=== PATIENT | female | born 1955 | race Hispanic/Latino ===

== ENCOUNTER 2016-08-16 13:37 | Inpatient (IN) | payer MEDICARE ==
[2016-08-16] MEDS ORDERED: NACL 0.9% 1000 ML 1,000 ML ONE ×2 (13:48→17:12)
[2016-08-16 14:32] LABS: Eosinophils % (Auto) 0.8 % (0.0-4.3); Hematocrit 37.8 % (30.3-42.9); Hemoglobin 12.3 gm/dl (10.1-14.3); Mean Corpuscular HGB Conc 33 % (30-34); Mean Corpuscular Hemoglobin 27 pg (28-32); Mean Corpuscular Volume 84 fl (79-97); Platelet Count 336 K/mm3 (140-440); Red Blood Count 4.52 M/mm3 (3.65-5.03); Red Cell Distribution Width 15.3 % (13.2-15.2); White Blood Count 8.5 K/mm3 (4.5-11.0)
[2016-08-16 14:40] LABS: Anion Gap 15 mmol/L; BUN/Creatinine Ratio 8.75; Blood Urea Nitrogen 7 mg/dL (7-17); Carbon Dioxide 28 mmol/L (22-30); Chloride 98.3 mmol/L (98-107); Glucose 474 mg/dL (65-100); Potassium 4.7 mmol/L (3.6-5.0); Sodium 137 mmol/L (137-145)
[2016-08-16] MEDS ORDERED: ATROVENT IH ONE (14:55)
[2016-08-16] MEDS ORDERED: PROVENTIL IH ONE (14:56)
[2016-08-16] MEDS ORDERED: ZITHROMAX PO ONE (14:56)
--- NOTE | 2016-08-16 14:56 | XRay Report ---
PORTABLE CHEST INDICATION: Productive cough. COMPARISON: None similar at this institution. FINDINGS: Portable, frontal chest radiograph demonstrates mild horizontal left lung base scarring or atelectasis. Otherwise clear lungs. Normal cardiomediastinal silhouette. EKG leads. Mild bony degenerative changes. CONCLUSION: No significant acute chest process, as described. Direct comparison with prior chest imaging would also be helpful, if available. Thank you for the opportunity to participate in this patient's care.
[2016-08-16 14:57] LABS: Bilirubin,Urine NEG (Negative); Blood,Urine NEG (Negative); Ketones,Urine NEG (Negative); Leukocyte Esterase,Urine NEG (Negative); Nitrite,Urine NEG (Negative); Protein,Urine <15 mg/dL mg/dL (Negative); RBC,Urine < 1.0 /HPF (0.0-6.0); Urobilinogen,Urine < 2.0 mg/dL (<2.0)
[2016-08-16] MEDS ORDERED: TESSALON PERLES PO ONE (14:57)
[2016-08-16 15:33] LABS: ISTAT Base Excess -1; ISTAT HCO3 24.4; ISTAT PCO2 43.4 (35-45); ISTAT PH 7.358 (7.35-7.45); ISTAT PO2 72 (80-105); ISTAT SO2 93; ISTAT TCO2 26
[2016-08-16] MEDS ORDERED: NACL 0.9% 1000 ML 1,000 ML IV ONE (17:38)
--- NOTE | 2016-08-16 18:41 | Admit Criteria Form ---
Admission Criteria Documentation: PULMONARY DISEASE GRG Clinical Indications for Admission to Inpatient Care ( Place 'X' for any and all applicable criteria): Hospital admission is needed for appropriate care of the patient because of ANY ONE of the following(1): [ ]I. Impending or actual respiratory arrest ( Use Respiratory Failure Criteria for severe respiratory disease and long-term mechanical ventilation patients) (4) [ ]II. Severe airflow or ventilation abnormalities (not responsive to emergency and observation care treatment as appropriate) as indicated by ANY ONE of the following(5)(6)(7)(8) : [ ]a) PCO2 > 42 mm Hg (5.6 kPa) and pH < 7.35 (new) [ ]b) Documented PCO2 increase > 5 mm Hg (0.7 kPa) from disease baseline [ ]c) Airflow measurements[A] < 60% of previous best or predicted ( e.g., PEF <300 L/minute) despite intensive emergent treatment[B] [ ]d) Required respiratory treatments that are performable only in acute inpatient setting [ X]III. Severe respiratory findings (not responsive to emergency and observation care treatment as appropriate) including ANY ONE of the following(5)(8)(9): [ X]a) Respiratory distress as indicated by ALL of the following(5)(10) : [X]i) Patient with ANY ONE of the following: [X ]1) Dyspnea (difficulty breathing) [ ]2) Abnormal breathing pattern (eg, chest retractions) [ ]3) Tachypnea [ ]4) Other evidence of difficulty breathing [X ]ii) Evidence of respiratory compromise indicated by ANY ONE of the following: [ X]1) Hypoxemia [ ]2) Altered mental status [ ]3) Other evidence of respiratory compromise (eg, pulmonary edema on chest x-ray) [ ]b) Stridor [ ]c) Gross hemoptysis(11) [ ]d) Acute cyanosis [ ]IV. High-risk pulmonary infection as indicated by ANY ONE of the following( 19)(20)(21)(22): [ ]a) Temperature less than 95 degrees F(35 degrees C) or greater than 103.1 degrees F(39.5 degrees C) [ ]b) Hemodynamic instability that remains after emergency or observation level care (as appropriate) [ ]c) Immunocompromised patient (eg, AIDS, post transplant, neutropenic) [ ]d) History of severe COPD [ ]e) History of severely symptomatic congestive heart failure [ ]f) Other high-risk comorbidity (eg, poorly controlled diabetes, cirrhosis, chronic renal insufficiency) [ ]g) Hypoxemia (new) [ ]h) Outpatient, observation, or recovery facility therapy has failed, is not appropriate, or is not feasible [ ]V. Severe atelectasis or lung collapse(15)(16) [ ]. Tuberculosis requiring inpatient treatment as indicated by ANY ONE of the following(17)(18): [ ]a) New positive acid-fast bacilli sputum smear [ ]b) Positive acid-fast bacilli smear (under current treatment), with ANY ONE of the following: [ ]i) Unexposed household contacts [ ]ii) Infants or immunosuppressed household contacts [ ]iii) Patient unable or unwilling to avoid exposing others [ ]iv) Severe immunocompromised patient (eg, AIDS, post transplant, neutropenic) [ ]VII. Empyema or lung abscess(13)(14) [ ]VIII. Severe pulmonary arterial hypertension or pulmonary vascular disease requiring inpatient care indicated by ANY ONE of the following(24)(25): [ ]a) Initiation or change of vasodilators (IV, subcutaneous, or inhaled) or other vasoactive medications needed [ ]b) IV anticoagulation needed (eg, immediate anticoagulation necessary, alternatives not appropriate) [ ]c) Arterial or pulmonary artery catheter monitoring needed due to infusion or other treatment [ ]IX. Chronic lung disease with severe deterioration (not responsive to emergency and observation care treatment as appropriate) as indicated by ANY ONE of the following (6)(12): [ ]a) SaO2 5% below baseline in patient with chronic hypoxemia [ ]b) New requirement for supplemental oxygen to keep SaO2 at baseline or acceptable level [ ]c) Required supplemental oxygen performable only in acute inpatient setting [ ]d) Severe airflow or ventilation abnormalities [ ]e) Rapid rate of exacerbation onset [ ]f) Previously mobile patient unable to walk between rooms [ ]g) Inability to eat or sleep due to dyspnea [ ]h) Altered mental status [ ]X. Cystic fibrosis with severe deterioration as indicated by ANY ONE of the following(26)(27): [ ]a) Severe exacerbation that does not respond to intensified home therapy [ ]b) Pneumonia [ ]c) Hemoptysis [ ]d) Atelectasis [ ]e) Pneumothorax [ ]f) Respiratory failure [ ]g) Severe exacerbation with patient unable to perform prescribed treatments at home [ ]XI. Severe right heart failure as indicated by ANY ONE of the following(24) (25): [ ]a) Increasing organ failure (eg, liver congestion with significant and worsening or new elevation of transaminases) [ ]b) Anasarca [ ]c) Angina that requires inpatient care (eg, not treatable in emergency or observation level of care) [ ]d) Respiratory distress [ ]e) Syncope [ ]f) SBP < 90 mm Hg (new) [ ]XII. Injury requiring inpatient care (medical) as indicated by ANY ONE of the following(28): [ ]a) Significant inhalation injury (eg, smoke inhalation, other toxic inhalation) (29)(30)(31) [ ]b) Airway obstruction that remains or is unstable after emergency or observation level care(32) [ ]c) Severe pain requiring acute inpatient management [ ]d) Lung contusion [ ]e) Bronchial tree injury [ ]f) Air or fat emboli(33) [ ]g) Other injury not treatable in emergency or observation level care (eg, hemothorax) (34) [ ]XIII. Pulmonary hemorrhage or significant hemoptysis(11)(35)(36) [ ]XIV. Inpatient palliative care needed[C](37)(38)(39)(40) [ ]XV. Complications of lung transplant (eg, rejection, failure, respiratory infection) (23) [ ]XVI. Pulmonary Disease and ANY ONE of the following: [ ]a) General Admission Criteria [ ]b) Pediatric General Admission Criteria The original [facility] content created by [facility] has been revised. The portions of the content which have been revised are identified through the use of italic text or in bold, and [facility] has neither reviewed nor approved the modified material. All other unmodified content is copyright [facility]. Please see references footnoted in the original [facility] edition 2016 Admission Criteria Met: Yes
[2016-08-16] MEDS ORDERED: D50W (25GM) IV PRN (19:02)
--- NOTE | 2016-08-16 19:28 | Emergency Department Report ---
ED Shortness of Breath HPI - General Chief Complaint: Upper Respiratory Infection Stated Complaint: COUGH Time Seen by Provider: 08/16/16 14:21 Source: patient, EMS Mode of arrival: Stretcher Limitations: Other - History of Present Illness MD Complaint: shortness of breath (wheezing), cough -: Gradual, days(s) Severity: moderate Pain Scale: 5 Quality: other (tightness) Consistency: constant Improves With: rest Worsens With: exertion Known History Of: asthma (COPD) Context: recent URI Associated Symptoms: chest pain, cough, sputum production, other (wheezing) - Related Data Home Medications Medication Instructions Recorded Confirmed Last Taken Baclofen [Lioresal] 10 mg PO TID 08/16/16 08/16/16 Unknown Donepezil [Aricept] 10 mg PO QDAY 08/16/16 08/16/16 Unknown Duloxetine HCl [Cymbalta] 60 mg PO QDAY 08/16/16 08/16/16 Unknown ISOSORBIDE MONOnitrate [Imdur ER] 60 mg PO QAM 08/16/16 08/16/16 Unknown Losartan [Cozaar] 100 mg PO QDAY 08/16/16 08/16/16 Unknown Lurasidone HCl [Latuda] 20 mg PO QHS 08/16/16 08/16/16 Unknown Meloxicam [Mobic] 7.5 mg PO QDAY 08/16/16 08/16/16 Unknown Memantine HCl [Namenda Xr] 28 mg PO QDAY 08/16/16 08/16/16 Unknown Mirtazapine [Remeron] 30 mg PO QDAY 08/16/16 08/16/16 Unknown Omeprazole Magnesium [PriLOSEC Otc] 20 mg PO QDAY 08/16/16 08/16/16 Unknown Oxybutynin Chloride [Ditropan Xl] 10 mg PO QDAY 08/16/16 08/16/16 Unknown Ranitidine HCl [Zantac 150 MG TAB] 150 mg PO BID 08/16/16 08/16/16 Unknown Previous Rx's Medication Instructions Recorded Last Taken Type ALBUTEROL Inhaler [ProAir HFA 2 puff IH QID PRN #2 inhalation 08/16/16 Unknown Rx Inhaler] Azithromycin [Zithromax TAB] 250 mg PO QDAY #6 tablet 05/02/17 Unknown Rx predniSONE [Deltasone] 50 mg PO QDAY #5 tab 08/16/16 Unknown Rx Allergies Allergy/AdvReac Type Severity Reaction Status Date / Time clopidogrel bisulfate Allergy Unknown Verified 08/16/16 13:55 [From Plavix] hydromorphone HCl Allergy Unknown Verified 08/16/16 13:55 [From Dilaudid] IV Contast Dye Allergy Unknown Uncoded 08/16/16 13:55 ED Review of Systems ROS: Stated complaint: COUGH Other details as noted in HPI Other: GENERAL: No weight change, fatigue, weakness, fever, chills, or night sweats SKIN: No changes in skin or hair, no itching, no rashes, no jaundice HEAD: No trauma, headache, or visual changes EYES: No blurriness, tearing, itching, acute visual loss, conjunctival discoloration, or scleral icterus EARS: No hearing loss, tinnitus, vertigo, or earache NOSE: No rhinorrhea, stuffiness, sneezing, itching, or epistaxis MOUTH: No bleeding gums, hoarseness, sore throat, or swelling CARDIAC: No new murmur, chest pain, palpitations, dyspnea on exertion, orthopnea , PND, or edema RESPIRATORY: shortness of breath, wheeze, cough, sputum production, COPD GI: No change in appetite, nausea, vomiting, dysphagia, change in bowel frequency, diarrhea, constipation, bleeding, hematemesis, melena, hematochezia, or abdominal pain URINARY: No frequency, urgency, polyuria, dysuria, hematuria, or incontinence MUSCULOSKELETAL: No muscle weakness, joint stiffness, decrease in range of motion, redness, swelling, tenderness NEUROLOGIC: No loss of sensation, numbness, tingling, tremors, weakness, paralysis, seizures HEMATOLOGIC: No anemia, easy bruising, bleeding, petechiae, or purpura ENDOCRINE: No hot or cold intolerance, sweating, polyuria, polydipsia or, polyphagia no thyroid problems PSYCHIATRIC: depression, Denies SI/HI ED Past Medical Hx - Past Medical History Previous Medical History?: Yes Hx Heart Attack/AMI: Yes Hx Diabetes: Yes Hx GERD: Yes Hx Psychiatric Treatment: Yes (bipolar) Hx COPD: Yes Additional medical history: multiple sclerosis - Surgical History Past Surgical History?: Yes Hx Coronary Stent: Yes (x4) - Social History Smoking Status: Current Every Day Smoker Substance Use Type: None - Medications Home Medications: Home Medications Medication Instructions Recorded Confirmed Last Taken Type ALBUTEROL Inhaler [ProAir HFA 2 puff IH QID PRN #2 inhalation 08/16/16 Unknown Rx Inhaler] Azithromycin [Zithromax TAB] 250 mg PO QDAY #6 tablet 08/16/16 Unknown Rx Baclofen [Lioresal] 10 mg PO TID 08/16/16 08/16/16 Unknown History Donepezil [Aricept] 10 mg PO QDAY 08/16/16 08/16/16 Unknown History Duloxetine HCl [Cymbalta] 60 mg PO QDAY 08/16/16 08/16/16 Unknown History ISOSORBIDE MONOnitrate [Imdur ER] 60 mg PO QAM 08/16/16 08/16/16 Unknown History Losartan [Cozaar] 100 mg PO QDAY 08/16/16 08/16/16 Unknown History Lurasidone HCl [Latuda] 20 mg PO QHS 08/16/16 08/16/16 Unknown History Meloxicam [Mobic] 7.5 mg PO QDAY 08/16/16 08/16/16 Unknown History Memantine HCl [Namenda Xr] 28 mg PO QDAY 08/16/16 08/16/16 Unknown History Mirtazapine [Remeron] 30 mg PO QDAY 08/16/16 08/16/16 Unknown History Omeprazole Magnesium [PriLOSEC Otc] 20 mg PO QDAY 08/16/16 08/16/16 Unknown History Oxybutynin Chloride [Ditropan Xl] 10 mg PO QDAY 08/16/16 08/16/16 Unknown History Ranitidine HCl [Zantac 150 MG TAB] 150 mg PO BID 08/16/16 08/16/16 Unknown History predniSONE [Deltasone] 50 mg PO QDAY #5 tab 08/16/16 Unknown Rx ED Physical Exam - General Limitations: Other - Other Other exam information: GENERAL: Patient in no acute distress HEAD: Normocephalic, atraumatic EYES: PERRLA, EOM intact, no scleral icterus, no papilledema, no conjunctival hemorrhage, visual barboza and acuity wnl, NOSE: No tenderness, discharge, sinus tenderness MOUTH: No erythema, bleeding, exudate HEART: Regular rate and rhythm, no murmur, S1-S2 are auscultated, pulses are symmetric LUNGS: wheezing, rales, tachypnea ABDOMEN: Normal bowel sounds, no tenderness, no rebound, no guarding, no masses , no CVA tenderness MUSCULOSKELETAL: Normal joint range of motion, no redness, no swelling, no tenderness NEUROLOGIC: GCS 15, Alert and Oriented x3, Cranial nerves intact, normal sensation, normal strength, normal gait, no cerebellar deficit PSYCHIATRIC: No homicidal or suicidal ideation, no hallucinations SKIN: Skin is warm and dry, no wounds, no rashes ED Course Vital Signs 08/16/16 08/16/16 08/16/16 13:36 13:41 13:48 Temperature 98.8 F Pulse Rate 83 84 Pulse Rate [ Bilateral Bases ] Respiratory 15 25 H 25 H Rate Respiratory Rate [Bilateral Bases] Blood Pressure 144/48 144/48 Blood Pressure [Right] O2 Sat by Pulse 92 92 Oximetry 08/16/16 08/16/16 08/16/16 13:51 14:00 14:05 Temperature Pulse Rate 86 84 Pulse Rate [ Bilateral Bases ] Respiratory 28 H 19 22 Rate Respiratory Rate [Bilateral Bases] Blood Pressure 133/60 138/59 Blood Pressure [Right] O2 Sat by Pulse 96 96 90 Oximetry 08/16/16 08/16/16 08/16/16 14:11 14:15 14:21 Temperature 98.6 F Pulse Rate 81 85 81 Pulse Rate [ Bilateral Bases ] Respiratory 25 H 29 H 18 Rate Respiratory Rate [Bilateral Bases] Blood Pressure 130/65 132/72 Blood Pressure 130/65 [Right] O2 Sat by Pulse 96 96 86 Oximetry 08/16/16 08/16/16 08/16/16 14:30 15:00 15:17 Temperature Pulse Rate 85 85 Pulse Rate [ 82 Bilateral Bases ] Respiratory 16 24 Rate Respiratory 20 Rate [Bilateral Bases] Blood Pressure 133/62 143/69 Blood Pressure [Right] O2 Sat by Pulse 96 94 Oximetry 08/16/16 08/16/16 08/16/16 15:30 15:31 16:00 Temperature Pulse Rate 93 H 92 H Pulse Rate [ 85 Bilateral Bases ] Respiratory 17 23 Rate Respiratory 10 L Rate [Bilateral Bases] Blood Pressure 134/70 147/60 Blood Pressure [Right] O2 Sat by Pulse 95 85 Oximetry 08/16/16 08/16/16 08/16/16 16:30 17:00 17:30 Temperature Pulse Rate 94 H 98 H 87 Pulse Rate [ Bilateral Bases ] Respiratory 23 20 16 Rate Respiratory Rate [Bilateral Bases] Blood Pressure 147/66 137/67 143/64 Blood Pressure [Right] O2 Sat by Pulse 92 94 96 Oximetry 08/16/16 08/16/16 08/16/16 18:00 18:30 19:01 Temperature Pulse Rate 93 H 106 H 91 H Pulse Rate [ Bilateral Bases ] Respiratory 25 H 19 17 Rate Respiratory Rate [Bilateral Bases] Blood Pressure 130/88 137/115 137/115 Blood Pressure [Right] O2 Sat by Pulse 98 96 95 Oximetry 08/16/16 08/16/16 08/16/16 19:31 20:01 20:31 Temperature Pulse Rate Pulse Rate [ Bilateral Bases ] Respiratory Rate Respiratory Rate [Bilateral Bases] Blood Pressure 137/115 137/115 137/115 Blood Pressure [Right] O2 Sat by Pulse 95 94 94 Oximetry 08/16/16 08/16/16 08/16/16 21:00 21:31 22:00 Temperature Pulse Rate 99 H 98 H Pulse Rate [ Bilateral Bases ] Respiratory 13 12 Rate Respiratory Rate [Bilateral Bases] Blood Pressure 116/62 116/62 143/73 Blood Pressure [Right] O2 Sat by Pulse 95 95 94 Oximetry 08/16/16 08/16/16 08/16/16 22:31 23:01 23:31 Temperature Pulse Rate Pulse Rate [ Bilateral Bases ] Respiratory Rate Respiratory Rate [Bilateral Bases] Blood Pressure 116/62 150/68 150/68 Blood Pressure [Right] O2 Sat by Pulse 91 91 95 Oximetry 08/17/16 08/17/16 00:01 00:31 Temperature Pulse Rate Pulse Rate [ Bilateral Bases ] Respiratory Rate Respiratory Rate [Bilateral Bases] Blood Pressure 150/68 150/68 Blood Pressure [Right] O2 Sat by Pulse 96 96 Oximetry ED Medical Decision Making - Lab Data Result diagrams: 08/18/16 04:23 08/18/16 04:23 - EKG Data When compared to previous EKG there are: no significant change - Radiology Data Radiology results: report reviewed - Medical Decision Making Patient comfortable. Updated with results. Plan admission for further evaluation. Patient agrees with plan. Hospitalists accepts admission. Critical care attestation.: If time is entered above; I have spent that time in minutes in the direct care of this critically ill patient, excluding procedure time. ED Disposition Clinical Impression: COPD exacerbation Disposition: OP ADMITTED IP TO THIS HOSP Is pt being admited?: Yes Condition: Stable
[2016-08-16] MEDS ORDERED: NOVOLOG SUB-Q SCH (22:00)
--- NOTE | 2016-08-17 00:29 | Event Note ---
Date: 08/16/16 See H/p in reports Copd exacerbation
[2016-08-17] MEDS ORDERED: DULCOLAX PR PRN (00:38)
[2016-08-17] MEDS ORDERED: ZOFRAN IV PRN (00:38)
[2016-08-17] MEDS ORDERED: MILK OF MAGNESIA PO PRN (00:38)
[2016-08-17] MEDS ORDERED: TYLENOL PO PRN (00:38)
[2016-08-17] MEDS ORDERED: PERCOCET 5/325 PO PRN (00:39)
[2016-08-17] MEDS ORDERED: DILAUDID IV PRN (00:39)
[2016-08-17] MEDS ORDERED: AMBIEN PO PRN (00:39)
[2016-08-17] MEDS ORDERED: DUONEB 0.5 MG-3 MG/3 ML SOLN IH PRN (00:41)
[2016-08-17] MEDS ORDERED: NON-FORMULARY (Ranitidine Hcl [Zantac 150 Mg Tab] 150 MG) PO SCH (00:45)
[2016-08-17] MEDS ORDERED: NACL 0.45% 1000 ML 1,000 ML IV SCH (01:00)
[2016-08-17] MEDS ORDERED: PROVENTIL IH PRN (01:02)
[2016-08-17] MEDS: DUONEB 0.5 MG-3 MG/3 ML SOLN IH SCH ×4 (02:08→19:48)
--- NOTE | 2016-08-17 06:31 | History and Physical Report ---
CHIEF COMPLAINT: Increasing shortness of breath for last 3 days. HISTORY OF PRESENT ILLNESS: A 60-year-old female with hypertension, COPD, coronary artery disease, depression, mild dementia, urinary incontinence, comes in for increasing shortness of breath of 3 days duration. Increasing wheezing. Cough productive of mucoid sputum to yellow sputum. No fever, no chills. No exacerbating or relieving factors. Slightly exertional dyspnea present. No chest pain. No diaphoresis. No palpitations. PAST MEDICAL HISTORY: As mentioned, COPD, acute MA in the past, insulin-dependent diabetes, gastroesophageal reflux disease, bipolar disorder, multiple sclerosis. PAST SURGICAL HISTORY: Coronary stents x 4. Two at a time. SOCIAL HISTORY: Smokes about a pack a day. FAMILY HISTORY: Significant for hypertension. CURRENT MEDICATIONS: On the chart. REVIEW OF SYSTEMS: CONSTITUTIONAL: No weight loss, no weight gain, no fever, no chills. HEENT: No sore throat. No postnasal drip. NECK: No neck stiffness. RESPIRATORY SYSTEM: Wheezing and cough productive of mucoid sputum present. CARDIOVASCULAR: No chest pain, no palpitation. No diaphoresis. GASTROINTESTINAL SYSTEM: No nausea, no vomiting, no diarrhea. GENITOURINARY SYSTEM: No dysuria, no flank pain. MUSCULOSKELETAL SYSTEM: No joint pains. No muscle pains. CENTRAL NERVOUS SYSTEM: No syncope, no seizures. SKIN: No rashes. PHYSICAL EXAMINATION GENERAL: Elderly female, cooperative during examination. VITAL SIGNS: Temperature is 98.6, pulse is 81, respiratory rate is 22, blood pressure is 130/65. HEENT: Unremarkable. Pupils are equal and reactive. NECK: Supple, no lymphadenopathy, no thyromegaly. LUNGS: Clear to auscultation and percussion. Good air entry. Bilateral rhonchi present. CARDIOVASCULAR: S1, S2 heard. No gallop, no murmur, no rub. Apical impulse in left fifth intercostal space and midclavicular line. ABDOMEN: Soft and benign. No hepatosplenomegaly. No guarding, no rigidity. Hernial orifices are normal. EXTREMITIES: Good pedal pulses. No pedal edema. CENTRAL NERVOUS SYSTEM: Alert and oriented x 4. Nonfocal exam. SKIN: Normal. LABORATORY DATA: White count is 8500, H and H is 12.3 and 37.8, platelet count is 336,000. ABGs: pCO2 of 43.4, pO2 of 72, bicarbonate of 24, pH of 7.01. Glucose was 448. BUN and creatinine 7 and 0.8. Urine is more than 500 glucose. Chest x-ray, no acute infiltrates. EKG, nonspecific ST-T wave changes. Heart rate of 80 per minute. ASSESSMENT AND PLAN: 1. Chronic obstructive pulmonary disease exacerbation. The patient was started on DuoNeb, IV Levaquin and steroids. Continue all three. Also, consult Dr. Christiansen for the chronic obstructive pulmonary disease exacerbation. 2. Hypertension. Continue losartan 100 mg daily. 3. Bipolar disorder. Continue Latuda 20 mg p.o. at bedtime and Cymbalta 60 mg p.o. daily. 4. Dementia, mild. Continue donepezil 10 mg p.o. daily and Namenda XR 28 mg p.o. daily, 5. Restless legs syndrome. Continue mirtazapine 30 mg p.o. daily. 6. Urinary incontinence. Continue Ditropan-XL 10 mg daily. 7. Gastroesophageal reflux disease. Continue ranitidine 150 mg twice a day. 8. Deep venous thrombosis prophylaxis. Lovenox 40 mg subcutaneous daily. 9. Insulin-dependent diabetes. Accu-Cheks before meals and at bedtime, moderate to high dose sliding scale coverage. JOB# [id number] VSM/NTS
[2016-08-17] MEDS: NOVOLOG SUB-Q SCH ×3 (08:39→17:09)
[2016-08-17] MEDS: LIORESAL PO SCH ×3 (08:44→20:49)
[2016-08-17] MEDS: CYMBALTA PO SCH (09:43)
[2016-08-17] MEDS: DITROPAN XL PO SCH (09:43)
[2016-08-17] MEDS: MOBIC PO SCH (09:44)
[2016-08-17] MEDS: PROTONIX PO SCH (09:44)
[2016-08-17] MEDS: NAMENDA XR PO SCH (09:44)
[2016-08-17] MEDS: IMDUR PO SCH (09:45)
[2016-08-17] MEDS: ARICEPT PO SCH (09:45)
[2016-08-17] MEDS: COZAAR PO SCH (09:45)
[2016-08-17] MEDS: LOVENOX SUB-Q SCH (09:46)
[2016-08-17] MEDS: LEVAQUIN 750MG/150ML 750 MG/150 ML BAG IV SCH (09:46)
[2016-08-17] MEDS ORDERED: PEPCID PO SCH (10:00)
[2016-08-17] MEDS ORDERED: NON-FORMULARY (Duloxetine Hcl [Cymbalta] 60 MG) PO SCH (10:00)
[2016-08-17] MEDS ORDERED: NON-FORMULARY (Losartan [Cozaar] 100 MG) PO SCH (10:00)
[2016-08-17] MEDS ORDERED: NON-FORMULARY (Omeprazole Magnesium [Prilosec Otc] 20 MG) PO SCH (10:00)
[2016-08-17] MEDS ORDERED: NON-FORMULARY (Oxybutynin Chloride [Ditropan Xl] 10 MG) PO SCH (10:00)
[2016-08-17] MEDS ORDERED: NON-FORMULARY (Memantine Hcl [Namenda Xr] 28 MG) PO SCH (10:00)
[2016-08-17] MEDS: REMERON PO SCH (12:46)
[2016-08-17] MEDS: ROBITUSSIN DM PO PRN ×3 (12:46→22:05)
--- NOTE | 2016-08-17 13:30 | Progress Note ---
Assessment and Plan Assessment and plan: COPD exacerbation Hypertension Bipolar disorder Dementia restless leg syndrome GERD Diabetes mellitus - Solu-Medrol, IV antibiotics, breathing treatment - Continue home medications - Sliding insulin insulin, accu checks, but that DVT prophylaxis Lovenox Disposition Continue inpatient care History Interval history: Patient was seen and evaluated this morning, patient has still short of breath and wheezing. Hospitalist Physical - Physical exam Narrative exam: Not in cardiopulmonary distress. The patient appeared well nourished and normally developed. Vital signs as documented. Head exam is unremarkable. No scleral icterus . Neck is without jugular venous distension, thyromegaly, or carotid bruits. Wheezing all over the chest. Cardiac exam reveals regular rate and Rhythm. First and second heart sounds normal. No murmurs, rubs or gallops. Abdominal exam reveals normal bowel sounds, no masses, no organomegaly and no aortic enlargement. Extremities are nonedematous and both femoral and pedal pulses are normal. ASTROBIOLOGIST: Alert and oriented 3. No focal weakness. - Constitutional Vitals: Temp Pulse Resp BP Pulse Ox 97.6 F 85 17 155/72 92 08/17/16 08:00 08/17/16 08:11 08/17/16 08:11 08/17/16 09:45 08/17/16 08:13 Results - Labs CBC & Chem 7: 08/16/16 14:07 08/16/16 14:07 Labs: Laboratory Last Values WBC 8.5 K/mm3 (4.5-11.0) 08/16/16 14:07 RBC 4.52 M/mm3 (3.65-5.03) 08/16/16 14:07 Hgb 12.3 gm/dl (10.1-14.3) 08/16/16 14:07 Hct 37.8 % (30.3-42.9) 08/16/16 14:07 MCV 84 fl (79-97) 08/16/16 14:07 MCH 27 pg (28-32) L 08/16/16 14:07 MCHC 33 % (30-34) 08/16/16 14:07 RDW 15.3 % (13.2-15.2) H 08/16/16 14:07 Plt Count 336 K/mm3 (140-440) 08/16/16 14:07 Lymph % (Auto) 16.7 % (13.4-35.0) 08/16/16 14:07 Rich % (Auto) 8.3 % (0.0-7.3) H 08/16/16 14:07 Eos % (Auto) 0.8 % (0.0-4.3) 08/16/16 14:07 Baso % (Auto) 1.0 % (0.0-1.8) 08/16/16 14:07 Lymph # 1.4 K/mm3 (1.2-5.4) 08/16/16 14:07 Rich # 0.7 K/mm3 (0.0-0.8) 08/16/16 14:07 Eos # 0.1 K/mm3 (0.0-0.4) 08/16/16 14:07 Baso # 0.1 K/mm3 (0.0-0.1) 08/16/16 14:07 Seg Neutrophils % 73.2 % (40.0-70.0) H 08/16/16 14:07 Seg Neutrophils # 6.2 K/mm3 (1.8-7.7) 08/16/16 14:07 POC ABG pH 7.358 (7.35-7.45) 08/16/16 15:26 POC ABG pCO2 43.4 (35-45) 08/16/16 15:26 POC ABG pO2 72 (80-105) L 08/16/16 15:26 POC ABG HCO3 24.4 08/16/16 15:26 POC ABG Total CO2 26 08/16/16 15:26 POC ABG O2 Sat 93 08/16/16 15:26 POC ABG Base Excess -1 08/16/16 15:26 VBG pH 7.309 (7.320-7.420) L 08/16/16 14:07 FiO2 28 % 08/16/16 15:26 Sodium 137 mmol/L (137-145) 08/16/16 14:07 Potassium 4.7 mmol/L (3.6-5.0) 08/16/16 14:07 Chloride 98.3 mmol/L (98-107) 08/16/16 14:07 Carbon Dioxide 28 mmol/L (22-30) 08/16/16 14:07 Anion Gap 15 mmol/L 08/16/16 14:07 BUN 7 mg/dL (7-17) 08/16/16 14:07 Creatinine 0.8 mg/dL (0.7-1.2) 08/16/16 14:07 Estimated GFR > 60 ml/min 08/16/16 14:07 BUN/Creatinine Ratio 8.75 % 08/16/16 14:07 Glucose 474 mg/dL (65-100) H 08/16/16 14:07 POC Glucose 412 (70-105) H 08/17/16 11:14 Hemoglobin A1c 11.6 % (4-6) H 08/16/16 14:07 Calcium 9.0 mg/dL (8.4-10.2) 08/16/16 14:07 Magnesium 2.10 mg/dL (1.7-2.3) 08/16/16 14:07 Troponin T < 0.010 ng/mL (0.00-0.029) 08/16/16 16:19 NT-Pro-B Natriuret Pep 258.0 pg/mL (0-900) 08/16/16 14:07 Urine Color Straw (Yellow) 08/16/16 14:24 Urine Turbidity Clear (Clear) 08/16/16 14:24 Urine pH 7.0 (5.0-7.0) 08/16/16 14:24 Ur Specific [place] 1.016 (1.003-1.030) 08/16/16 14:24 Urine Protein <15 mg/dl mg/dL (Negative) 08/16/16 14:24 Urine Glucose (UA) >=500 mg/dL (Negative) 08/16/16 14:24 Urine Ketones Neg mg/dL (Negative) 08/16/16 14:24 Urine Blood Neg (Negative) 08/16/16 14:24 Urine Nitrite Neg (Negative) 08/16/16 14:24 Urine Bilirubin Neg (Negative) 08/16/16 14:24 Urine Urobilinogen < 2.0 mg/dL (<2.0) 08/16/16 14:24 Ur Leukocyte Esterase Neg (Negative) 08/16/16 14:24 Urine WBC (Auto) 0.0 /HPF (0.0-6.0) 08/16/16 14:24 Urine RBC (Auto) < 1.0 /HPF (0.0-6.0) 08/16/16 14:24 U Epithel Cells (Auto) < 1.0 /HPF (0-13.0) 08/16/16 14:24
--- NOTE | 2016-08-17 18:44 | Event Note ---
Date: 08/17/16 Dr. Butts Thank you for asking us to participate in the care of this patient. Full consultation follow. IMMPRESSION; 1. Acute exagerbation of COPD. 2. Acute bronchitis. 3. Hypertnsion 4. Diabetes 5. Multiple Sclerosis. 6. Bipolar disorder. 7. Dimentia 8. Restless leg syndrome. PLAN: 1. O2 2 litres via nasal canula. 2. Albuterol/atrovent aerosol treatments q 6 hours. 3. Continue solumedral 4. Continue S/C Lovenox 5. Continue Levaquine. 6. Continue Protonix. 7. Continue Clonazepam
[2016-08-17] MEDS ORDERED: LURASIDONE HCL 20 MG PO SCH (22:00)
[2016-08-17] MEDS ORDERED: NOVOLOG SUB-Q ONE (22:15)
[2016-08-18] MEDS: DUONEB 0.5 MG-3 MG/3 ML SOLN IH SCH ×4 (02:31→20:16)
[2016-08-18 04:44] LABS: Basophils % (Auto) 0.1 % (0.0-1.8); Hematocrit 36.6 % (30.3-42.9); Hemoglobin 11.7 gm/dl (10.1-14.3); Mean Corpuscular HGB Conc 32 % (30-34); Mean Corpuscular Hemoglobin 26 pg (28-32); Mean Corpuscular Volume 82 fl (79-97); Platelet Count 371 K/mm3 (140-440); Red Blood Count 4.45 M/mm3 (3.65-5.03); Red Cell Distribution Width 15.4 % (13.2-15.2); White Blood Count 10.9 K/mm3 (4.5-11.0)
[2016-08-18 05:17] LABS: Alanine Aminotransferase 15 units/L (7-56); Albumin 3.7 g/dL (3.9-5); Albumin/Globulin Ratio 1.3 %; Alkaline Phosphatase 102 units/L (35-129); Anion Gap 19 mmol/L; Blood Urea Nitrogen 11 mg/dL (7-17); Calcium 9.4 mg/dL (8.4-10.2); Carbon Dioxide 26 mmol/L (22-30); Chloride 99.7 mmol/L (98-107); Glucose 276 mg/dL (65-100); Potassium 4.4 mmol/L (3.6-5.0); Sodium 140 mmol/L (137-145); Total Protein 6.5 g/dL (6.3-8.2)
[2016-08-18] MEDS: NOVOLOG SUB-Q SCH ×3 (08:43→17:33)
[2016-08-18] MEDS: LIORESAL PO SCH ×3 (08:44→21:00)
[2016-08-18] MEDS: CYMBALTA PO SCH (09:49)
[2016-08-18] MEDS: ROBITUSSIN DM PO PRN ×2 (09:49→14:02)
[2016-08-18] MEDS: IMDUR PO SCH (09:50)
[2016-08-18] MEDS: DITROPAN XL PO SCH (09:50)
[2016-08-18] MEDS: ARICEPT PO SCH (09:50)
[2016-08-18] MEDS: PROTONIX PO SCH (09:50)
[2016-08-18] MEDS: NAMENDA XR PO SCH (09:51)
[2016-08-18] MEDS: COZAAR PO SCH (09:51)
[2016-08-18] MEDS: MOBIC PO SCH (09:51)
[2016-08-18] MEDS: LEVAQUIN 750MG/150ML 750 MG/150 ML BAG IV SCH (09:52)
[2016-08-18] MEDS: LOVENOX SUB-Q SCH (09:52)
[2016-08-18] MEDS: REMERON PO SCH (10:10)
--- NOTE | 2016-08-18 10:54 | Progress Note ---
Assessment and Plan (1) Acute exacerbation of chronic obstructive pulmonary disease (COPD) Current Visit: Yes Status: Acute Plan to address problem: - continue systemic steroids - consider LABA if persistent wheezing - continue BEA - wean oxygen to keep sats > 92% - continue empiric AB's - prn BIPAP (2) Obesity Current Visit: Yes Status: Acute Qualifiers: Obesity type: O Obesity severity: O Plan to address problem: - weight loss counselled - sleep clinic evaluation Subjective Date of service: 08/18/16 Principal diagnosis: Acute COPD exacerbation Interval history: Seen and examined at bedside; 24 hour events reviewed; nursing and respiratory care staff consulted; no adverse overnight events reported to me;states that she is still SOB but overall better; no chest pains or palpitations Objective Vital Signs - 12hr 08/17/16 08/18/16 08/18/16 23:00 02:00 02:39 Temperature 98.0 F Pulse Rate [ 93 H 81 Anterior Bilateral Throughout] Pulse Rate [ 103 H Left Radial] Respiratory 18 Rate Respiratory 18 18 Rate [Anterior Bilateral Throughout] Blood Pressure Blood Pressure 157/74 [Left Arm] O2 Sat by Pulse 100 Oximetry 08/18/16 08/18/16 08/18/16 08:31 09:50 09:51 Temperature 98.5 F Pulse Rate [ Anterior Bilateral Throughout] Pulse Rate [ 96 H Left Radial] Respiratory 20 Rate Respiratory Rate [Anterior Bilateral Throughout] Blood Pressure 165/81 165/81 Blood Pressure 165/81 [Left Arm] O2 Sat by Pulse 94 Oximetry Constitutional: no acute distress Eyes: non-icteric ENT: oropharynx moist Neck: supple, no lymphadenopathy Effort: mildly labored Ascultation: Bilateral: rales Cardiovascular: regular rate and rhythm Gastrointestinal: normoactive bowel sounds, soft, non-tender, non-distended Integumentary: normal Extremities: no cyanosis, no edema, pink and warm, pulses normal Neurologic: normal mental status, non-focal exam, pupils equal and round, motor strength normal and Psychiatric: mood appropriate, affect normal CBC and BMP: 08/19/16 04:00 08/19/16 04:00 ABG, PT/INR, D-dimer: ABG POC ABG pH 7.358 (7.35-7.45) 08/16/16 15:26 POC ABG pCO2 43.4 (35-45) 08/16/16 15:26 POC ABG pO2 72 (80-105) L 08/16/16 15:26 POC ABG HCO3 24.4 08/16/16 15:26 POC ABG Total CO2 26 08/16/16 15:26 POC ABG O2 Sat 93 08/16/16 15:26 Abnormal lab findings: Abnormal Labs 08/17/16 08/17/16 08/17/16 06:18 11:14 16:38 MCH RDW Lymph % (Auto) Lymph # Seg Neutrophils % Seg Neutrophils # Creatinine Glucose POC Glucose 222 H 412 H 395 H Albumin 08/17/16 08/18/16 08/18/16 21:24 04:23 04:23 MCH 26 L RDW 15.4 H Lymph % (Auto) 5.9 L Lymph # 0.6 L Seg Neutrophils % 88.6 H Seg Neutrophils # 9.6 H Creatinine 0.5 L Glucose 276 H POC Glucose 305 H Albumin 3.7 L 08/18/16 05:21 MCH RDW Lymph % (Auto) Lymph # Seg Neutrophils % Seg Neutrophils # Creatinine Glucose POC Glucose 304 H Albumin
--- NOTE | 2016-08-18 13:52 | Progress Note ---
Assessment and Plan Assessment and plan: COPD exacerbation Acute hypercapnic respiratory failure Hypertension Bipolar disorder Dementia restless leg syndrome GERD Diabetes mellitus - Solu-Medrol, IV antibiotics, breathing treatment - Continue home medications - Sliding insulin insulin, accu checks, but that DVT prophylaxis Lovenox Disposition - Patient is improved and stable for discharge but patient needs placement and forensic social worker is working on it. History Interval history: Patient was seen and evaluated this morning, patient's breathing is markedly improved. Patient states she doesn't have a place to go. Hospitalist Physical - Physical exam Narrative exam: Not in cardiopulmonary distress. The patient appeared well nourished and normally developed. Vital signs as documented. Head exam is unremarkable. No scleral icterus . Neck is without jugular venous distension, thyromegaly, or carotid bruits. Scattered wheezing. Cardiac exam reveals regular rate and Rhythm. First and second heart sounds normal. No murmurs, rubs or gallops. Abdominal exam reveals normal bowel sounds, no masses, no organomegaly and no aortic enlargement. Extremities are nonedematous and both femoral and pedal pulses are normal. 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 No focal weakness. - Constitutional Vitals: Temp Pulse Resp BP Pulse Ox 98.5 F 96 H 20 165/81 94 08/18/16 08:31 08/18/16 08:31 08/18/16 08:31 08/18/16 09:51 08/18/16 10:00 Results - Labs CBC & Chem 7: 08/18/16 04:23 08/18/16 04:23 Labs: Laboratory Last Values WBC 10.9 K/mm3 (4.5-11.0) 08/18/16 04:23 RBC 4.45 M/mm3 (3.65-5.03) 08/18/16 04:23 Hgb 11.7 gm/dl (10.1-14.3) 08/18/16 04:23 Hct 36.6 % (30.3-42.9) 08/18/16 04:23 MCV 82 fl (79-97) 08/18/16 04:23 MCH 26 pg (28-32) L 08/18/16 04:23 MCHC 32 % (30-34) 08/18/16 04:23 RDW 15.4 % (13.2-15.2) H 08/18/16 04:23 Plt Count 371 K/mm3 (140-440) 08/18/16 04:23 Lymph % (Auto) 5.9 % (13.4-35.0) L 08/18/16 04:23 [place] % (Auto) 5.4 % (0.0-7.3) 08/18/16 04:23 Eos % (Auto) 0.0 % (0.0-4.3) 08/18/16 04:23 Baso % (Auto) 0.1 % (0.0-1.8) 08/18/16 04:23 Lymph # 0.6 K/mm3 (1.2-5.4) L 08/18/16 04:23 [place] # 0.6 K/mm3 (0.0-0.8) 08/18/16 04:23 Eos # 0.0 K/mm3 (0.0-0.4) 08/18/16 04:23 Baso # 0.0 K/mm3 (0.0-0.1) 08/18/16 04:23 Seg Neutrophils % 88.6 % (40.0-70.0) H 08/18/16 04:23 Seg Neutrophils # 9.6 K/mm3 (1.8-7.7) H 08/18/16 04:23 POC ABG pH 7.358 (7.35-7.45) 08/16/16 15:26 POC ABG pCO2 43.4 (35-45) 08/16/16 15:26 POC ABG pO2 72 (80-105) L 08/16/16 15:26 POC ABG HCO3 24.4 08/16/16 15:26 POC ABG Total CO2 26 08/16/16 15:26 POC ABG O2 Sat 93 08/16/16 15:26 POC ABG Base Excess -1 08/16/16 15:26 VBG pH 7.309 (7.320-7.420) L 08/16/16 14:07 FiO2 28 % 08/16/16 15:26 Sodium 140 mmol/L (137-145) 08/18/16 04:23 Potassium 4.4 mmol/L (3.6-5.0) 08/18/16 04:23 Chloride 99.7 mmol/L (98-107) 08/18/16 04:23 Carbon Dioxide 26 mmol/L (22-30) 08/18/16 04:23 Anion Gap 19 mmol/L 08/18/16 04:23 BUN 11 mg/dL (7-17) 08/18/16 04:23 Creatinine 0.5 mg/dL (0.7-1.2) L 08/18/16 04:23 Estimated GFR > 60 ml/min 08/18/16 04:23 BUN/Creatinine Ratio 22.00 % 08/18/16 04:23 Glucose 276 mg/dL (65-100) H 08/18/16 04:23 POC Glucose 450 (70-105) H 08/18/16 11:41 Hemoglobin A1c 11.6 % (4-6) H 08/16/16 14:07 Calcium 9.4 mg/dL (8.4-10.2) 08/18/16 04:23 Magnesium 2.10 mg/dL (1.7-2.3) 08/16/16 14:07 Total Bilirubin 0.20 mg/dL (0.1-1.2) 08/18/16 04:23 AST 23 units/L (5-40) 08/18/16 04:23 ALT 15 units/L (7-56) 08/18/16 04:23 Alkaline Phosphatase 102 units/L (35-129) 08/18/16 04:23 Troponin T < 0.010 ng/mL (0.00-0.029) 08/16/16 16:19 NT-Pro-B Natriuret Pep 258.0 pg/mL (0-900) 08/16/16 14:07 Total Protein 6.5 g/dL (6.3-8.2) 08/18/16 04:23 Albumin 3.7 g/dL (3.9-5) L 08/18/16 04:23 Albumin/Globulin Ratio 1.3 % 08/18/16 04:23 Urine Color Straw (Yellow) 08/16/16 14:24 Urine Turbidity Clear (Clear) 08/16/16 14:24 Urine pH 7.0 (5.0-7.0) 08/16/16 14:24 Ur Specific [place] 1.016 (1.003-1.030) 08/16/16 14:24 Urine Protein <15 mg/dl mg/dL (Negative) 08/16/16 14:24 Urine Glucose (UA) >=500 mg/dL (Negative) 08/16/16 14:24 Urine Ketones Neg mg/dL (Negative) 08/16/16 14:24 Urine Blood Neg (Negative) 08/16/16 14:24 Urine Nitrite Neg (Negative) 08/16/16 14:24 Urine Bilirubin Neg (Negative) 08/16/16 14:24 Urine Urobilinogen < 2.0 mg/dL (<2.0) 08/16/16 14:24 Ur Leukocyte Esterase Neg (Negative) 08/16/16 14:24 Urine WBC (Auto) 0.0 /HPF (0.0-6.0) 08/16/16 14:24 Urine RBC (Auto) < 1.0 /HPF (0.0-6.0) 08/16/16 14:24 U Epithel Cells (Auto) < 1.0 /HPF (0-13.0) 08/16/16 14:24
[2016-08-19] MEDS: DUONEB 0.5 MG-3 MG/3 ML SOLN IH SCH ×4 (01:28→20:59)
[2016-08-19 06:47] LABS: Hemoglobin 12.9 gm/dl (10.1-14.3); Mean Corpuscular HGB Conc 32 % (30-34); Mean Corpuscular Hemoglobin 27 pg (28-32); Mean Corpuscular Volume 83 fl (79-97); Platelet Count 391 K/mm3 (140-440); Red Blood Count 4.82 M/mm3 (3.65-5.03); Red Cell Distribution Width 15.1 % (13.2-15.2); White Blood Count 9.9 K/mm3 (4.5-11.0)
[2016-08-19 06:57] LABS: Anion Gap 18 mmol/L; BUN/Creatinine Ratio 28.33; Blood Urea Nitrogen 17 mg/dL (7-17); Calcium 9.6 mg/dL (8.4-10.2); Carbon Dioxide 28 mmol/L (22-30); Chloride 95.5 mmol/L (98-107); Glucose 336 mg/dL (65-100); Potassium 3.9 mmol/L (3.6-5.0); Sodium 138 mmol/L (137-145)
[2016-08-19 08:17] LABS: Blastocytes % (Manual) 0 %
[2016-08-19 08:18] LABS: Basophils % (Manual) 0 % (0.0-1.8); Eosinophils % (Manual) 0 % (0.0-4.3); RBC Morphology Normal
[2016-08-19] MEDS: NOVOLOG SUB-Q SCH ×3 (08:32→17:45)
[2016-08-19] MEDS: LEVAQUIN 750MG/150ML 750 MG/150 ML BAG IV SCH (09:58)
[2016-08-19] MEDS: MOBIC PO SCH (09:59)
[2016-08-19] MEDS: DITROPAN XL PO SCH (09:59)
[2016-08-19] MEDS: REMERON PO SCH (09:59)
[2016-08-19] MEDS: PROTONIX PO SCH (10:00)
[2016-08-19] MEDS: NAMENDA XR PO SCH (10:00)
[2016-08-19] MEDS: ARICEPT PO SCH (10:00)
[2016-08-19] MEDS: ROBITUSSIN DM PO PRN ×2 (10:01→20:23)
[2016-08-19] MEDS: LOVENOX SUB-Q SCH (10:01)
[2016-08-19] MEDS: LIORESAL PO SCH ×3 (10:01→22:53)
[2016-08-19] MEDS: CYMBALTA PO SCH (10:01)
[2016-08-19] MEDS: COZAAR PO SCH (10:02)
[2016-08-19] MEDS: IMDUR PO SCH (10:02)
[2016-08-19 10:09] LABS: Diff Status Complete
--- NOTE | 2016-08-19 10:41 | Progress Note ---
Assessment and Plan - Patient Problems (1) Acute exacerbation of chronic obstructive pulmonary disease (COPD) Current Visit: Yes Status: Acute Plan to address problem: - continue systemic steroids - add LABA - continue BEA - wean oxygen to keep sats > 92% - continue empiric AB's - prn BIPAP (2) Obesity Current Visit: Yes Status: Acute Qualifiers: Obesity type: O Obesity severity: O Plan to address problem: - weight loss counselled - sleep clinic evaluation Subjective Date of service: 08/19/16 Principal diagnosis: Acute COPD exacerbation; Obesity Interval history: Seen and examined at bedside; 24 hour events reviewed; nursing and respiratory care staff consulted; no adverse overnight events reported to me; continues to wheeze; denies acute chest pains or increased SOB; denies chest pains or palpitations; No N/V/F/C Objective Vital Signs - 12hr 08/19/16 08/19/16 08/19/16 01:20 01:30 07:00 Temperature 97.4 F L Pulse Rate [ 89 81 Anterior Bilateral Throughout] Pulse Rate [ 80 Left Radial] Respiratory 18 Rate Respiratory 18 20 Rate [Anterior Bilateral Throughout] Blood Pressure Blood Pressure 171/78 [Left Arm] O2 Sat by Pulse 97 Oximetry 08/19/16 08/19/16 08/19/16 09:23 09:25 09:35 Temperature Pulse Rate [ 102 H 103 H Anterior Bilateral Throughout] Pulse Rate [ Left Radial] Respiratory Rate Respiratory 20 20 Rate [Anterior Bilateral Throughout] Blood Pressure Blood Pressure [Left Arm] O2 Sat by Pulse 95 Oximetry 08/19/16 10:02 Temperature Pulse Rate [ Anterior Bilateral Throughout] Pulse Rate [ Left Radial] Respiratory Rate Respiratory Rate [Anterior Bilateral Throughout] Blood Pressure 171/81 Blood Pressure [Left Arm] O2 Sat by Pulse Oximetry Constitutional: alert, appears uncomfortable Eyes: non-icteric ENT: oropharynx moist Neck: supple, no lymphadenopathy Effort: mildly labored Ascultation: Bilateral: diminished breath sounds, rales Cardiovascular: regular rate and rhythm Gastrointestinal: normoactive bowel sounds, soft, non-tender, non-distended Integumentary: normal Extremities: no cyanosis, no edema, pink and warm, pulses normal, no ischemia or petechiae Neurologic: normal mental status, non-focal exam, pupils equal and round, motor strength normal and Psychiatric: mood appropriate, affect normal CBC and BMP: 08/19/16 04:00 08/19/16 04:00 ABG, PT/INR, D-dimer: ABG POC ABG pH 7.358 (7.35-7.45) 08/16/16 15:26 POC ABG pCO2 43.4 (35-45) 08/16/16 15:26 POC ABG pO2 72 (80-105) L 08/16/16 15:26 POC ABG HCO3 24.4 08/16/16 15:26 POC ABG Total CO2 26 08/16/16 15:26 POC ABG O2 Sat 93 08/16/16 15:26 Abnormal lab findings: Abnormal Labs 08/17/16 08/17/16 08/17/16 06:18 11:14 16:38 MCH RDW Lymph % (Auto) Lymph # Seg Neutrophils % Seg Neuts % (Manual) Lymphocytes % (Manual) Seg Neutrophils # Seg Neutrophils # Man Lymphocytes # (Manual) Chloride Creatinine Glucose POC Glucose 222 H 412 H 395 H Albumin 08/17/16 08/18/16 08/18/16 21:24 04:23 04:23 MCH 26 L RDW 15.4 H Lymph % (Auto) 5.9 L Lymph # 0.6 L Seg Neutrophils % 88.6 H Seg Neuts % (Manual) Lymphocytes % (Manual) Seg Neutrophils # 9.6 H Seg Neutrophils # Man Lymphocytes # (Manual) Chloride Creatinine 0.5 L Glucose 276 H POC Glucose 305 H Albumin 3.7 L 08/18/16 08/18/16 08/18/16 05:21 11:41 16:52 MCH RDW Lymph % (Auto) Lymph # Seg Neutrophils % Seg Neuts % (Manual) Lymphocytes % (Manual) Seg Neutrophils # Seg Neutrophils # Man Lymphocytes # (Manual) Chloride Creatinine Glucose POC Glucose 304 H 450 H 338 H Albumin 08/18/16 08/19/16 08/19/16 20:53 04:00 04:00 MCH 27 L RDW Lymph % (Auto) Lymph # Seg Neutrophils % Seg Neuts % (Manual) 96.0 H Lymphocytes % (Manual) 2.0 L Seg Neutrophils # Seg Neutrophils # Man 9.5 H Lymphocytes # (Manual) 0.2 L Chloride 95.5 L Creatinine 0.6 L Glucose 336 H POC Glucose 394 H Albumin 08/19/16 06:23 MCH RDW Lymph % (Auto) Lymph # Seg Neutrophils % Seg Neuts % (Manual) Lymphocytes % (Manual) Seg Neutrophils # Seg Neutrophils # Man Lymphocytes # (Manual) Chloride Creatinine Glucose POC Glucose 342 H Albumin Chest x-ray: image reviewed
--- NOTE | 2016-08-19 10:48 | Discharge Summary ---
Providers - Providers Date of Admission: 08/17/16 00:38 Date of discharge: 08/19/16 Attending physician: AMADEO TAM MD 08/17/16 00:39 Consult to Physician [CONS] Routine Consulting Provider: CANDI العراقي Reason For Exam: Copd Place consult to:: pulmon Notified:: office Phone number called:: [phone] Was contact made?: Yes If yes, spoke with:: Lety Time called:: 11:02 08/18/16 09:56 Physical Therapy Evaluation and Treat [CONS] Urgent Comment: Reason For Exam: Physical therapy eval for SNF placement Primary care physician: JUAN HONG Hospitalization Reason for admission: COPD exacerbation Condition: Stable [facility] Time spent for discharge: 31 minutes - Discharge Diagnoses (1) COPD exacerbation Status: Acute Core Measure Documentation - Palliative Care Palliative Care/ Comfort Measures: Not Applicable - Core Measures Any of the following diagnoses?: none Exam - Physical Exam Narrative exam: Not in cardiopulmonary distress. The patient appeared well nourished and normally developed. Vital signs as documented. Head exam is unremarkable. No scleral icterus . Neck is without jugular venous distension, thyromegaly, or carotid bruits. Scattered wheezing. Cardiac exam reveals regular rate and Rhythm. First and second heart sounds normal. No murmurs, rubs or gallops. Abdominal exam reveals normal bowel sounds, no masses, no organomegaly and no aortic enlargement. Extremities are nonedematous and both femoral and pedal pulses are normal. 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 No focal weakness. - Constitutional Vitals: Temp Pulse Resp BP Pulse Ox 97.4 F L 103 H 20 171/81 95 08/19/16 07:00 08/19/16 09:35 08/19/16 09:35 08/19/16 10:02 08/19/16 09:23 Plan Activity: no restrictions Weight Bearing Status: Full Weight Bearing Diet: low cholesterol, low salt, diabetic Follow up with: JUAN HONG MD [Primary Care Provider] - 2-3 Days Prescriptions: ALBUTEROL Inhaler [ProAir HFA Inhaler] 2 puff IH QID PRN #2 inhalation PRN Reason: Shortness Of Breath Azithromycin [Zithromax TAB] 250 mg PO QDAY #6 tablet Prednisone [predniSONE 5 mg (6-Day Pack, 21 Tabs)] 5 mg PO .TAPER #1 tab.ds.pk
[2016-08-19] MEDS ORDERED: APLISOL ID ONE (16:00)
--- NOTE | 2016-08-19 18:23 | Progress Note ---
Assessment and Plan Assessment and plan: COPD exacerbation Acute hypercapnic respiratory failure Hypertension Bipolar disorder Dementia restless leg syndrome GERD Diabetes mellitus - Solu-Medrol, IV antibiotics, breathing treatment - Continue home medications - Sliding insulin insulin, accu checks, but that DVT prophylaxis Lovenox Disposition - Patient is improving - Patient is pending placement - Patient Problems (1) COPD exacerbation Current Visit: Yes Status: Acute History Interval history: Patient was seen and evaluated this morning, patient's breathing is markedly improved. Patient states she doesn't have a place to go. Hospitalist Physical - Physical exam Narrative exam: Not in cardiopulmonary distress. The patient appeared well nourished and normally developed. Vital signs as documented. Head exam is unremarkable. No scleral icterus . Neck is without jugular venous distension, thyromegaly, or carotid bruits. Chest wheezing allover. Cardiac exam reveals regular rate and Rhythm. First and second heart sounds normal. No murmurs, rubs or gallops. Abdominal exam reveals normal bowel sounds, no masses, no organomegaly and no aortic enlargement. Extremities are nonedematous and both femoral and pedal pulses are normal. 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 No focal weakness. - Constitutional Vitals: Temp Pulse Resp BP Pulse Ox 97.7 F 97 H 18 181/83 95 08/19/16 16:00 08/19/16 16:00 08/19/16 16:00 08/19/16 16:00 08/19/16 09:23 Results - Labs CBC & Chem 7: 08/19/16 04:00 08/19/16 04:00 Labs: Laboratory Last Values WBC 9.9 K/mm3 (4.5-11.0) 08/19/16 04:00 RBC 4.82 M/mm3 (3.65-5.03) 08/19/16 04:00 Hgb 12.9 gm/dl (10.1-14.3) 08/19/16 04:00 Hct 40.0 % (30.3-42.9) 08/19/16 04:00 MCV 83 fl (79-97) 08/19/16 04:00 MCH 27 pg (28-32) L 08/19/16 04:00 MCHC 32 % (30-34) 08/19/16 04:00 RDW 15.1 % (13.2-15.2) 08/19/16 04:00 Plt Count 391 K/mm3 (140-440) 08/19/16 04:00 Lymph % (Auto) 5.9 % (13.4-35.0) L 08/18/16 04:23 [place] % (Auto) 5.4 % (0.0-7.3) 08/18/16 04:23 Eos % (Auto) 0.0 % (0.0-4.3) 08/18/16 04:23 Baso % (Auto) 0.1 % (0.0-1.8) 08/18/16 04:23 Lymph # 0.6 K/mm3 (1.2-5.4) L 08/18/16 04:23 [place] # 0.6 K/mm3 (0.0-0.8) 08/18/16 04:23 Eos # 0.0 K/mm3 (0.0-0.4) 08/18/16 04:23 Baso # 0.0 K/mm3 (0.0-0.1) 08/18/16 04:23 Add Manual Diff Complete 08/19/16 04:00 Total Counted 100 08/19/16 04:00 Seg Neutrophils % Motorboat Mechanic 08/19/16 04:00 Seg Neuts % (Manual) 96.0 % (40.0-70.0) H 08/19/16 04:00 Band Neutrophils % 1.0 % 08/19/16 04:00 Lymphocytes % (Manual) 2.0 % (13.4-35.0) L 08/19/16 04:00 Reactive Lymphs % (Man) 0 % 08/19/16 04:00 Monocytes % (Manual) 1.0 % (0.0-7.3) 08/19/16 04:00 Eosinophils % (Manual) 0 % (0.0-4.3) 08/19/16 04:00 Basophils % (Manual) 0 % (0.0-1.8) 08/19/16 04:00 Metamyelocytes % 0 % 08/19/16 04:00 Myelocytes % 0 % 08/19/16 04:00 Promyelocytes % 0 % 08/19/16 04:00 Blast Cells % 0 % 08/19/16 04:00 Nucleated RBC % Not Reportable 08/19/16 04:00 Seg Neutrophils # 9.6 K/mm3 (1.8-7.7) H 08/18/16 04:23 Seg Neutrophils # Man 9.5 K/mm3 (1.8-7.7) H 08/19/16 04:00 Band Neutrophils # 0.1 K/mm3 08/19/16 04:00 Lymphocytes # (Manual) 0.2 K/mm3 (1.2-5.4) L 08/19/16 04:00 Abs React Lymphs (Man) 0.0 K/mm3 08/19/16 04:00 Monocytes # (Manual) 0.1 K/mm3 (0.0-0.8) 08/19/16 04:00 Eosinophils # (Manual) 0.0 K/mm3 (0.0-0.4) 08/19/16 04:00 Basophils # (Manual) 0.0 K/mm3 (0.0-0.1) 08/19/16 04:00 Metamyelocytes # 0.0 K/mm3 08/19/16 04:00 Myelocytes # 0.0 K/mm3 08/19/16 04:00 Promyelocytes # 0.0 K/mm3 08/19/16 04:00 Blast Cells # 0.0 K/mm3 08/19/16 04:00 WBC Morphology Not Reportable 08/19/16 04:00 Hypersegmented Neuts Not Reportable 08/19/16 04:00 Hyposegmented Neuts Not Reportable 08/19/16 04:00 Hypogranular Neuts Not Reportable 08/19/16 04:00 Smudge Cells Not Reportable 08/19/16 04:00 Toxic Granulation Not Reportable 08/19/16 04:00 Toxic Vacuolation Not Reportable 08/19/16 04:00 Dohle Bodies Not Reportable 08/19/16 04:00 Pelger-Huet Anomaly Not Reportable 08/19/16 04:00 Sparkle Rods Not Reportable 08/19/16 04:00 Platelet Estimate Appears normal 08/19/16 04:00 Clumped Platelets Not Reportable 08/19/16 04:00 Plt Clumps, EDTA Not Reportable 08/19/16 04:00 Large Platelets Not Reportable 08/19/16 04:00 Giant Platelets Not Reportable 08/19/16 04:00 Platelet Satelliting Not Reportable 08/19/16 04:00 Plt Morphology Comment Not Reportable 08/19/16 04:00 RBC Morphology Normal 08/19/16 04:00 Dimorphic RBCs Not Reportable 08/19/16 04:00 Polychromasia Not Reportable 08/19/16 04:00 Hypochromasia Not Reportable 08/19/16 04:00 Poikilocytosis Not Reportable 08/19/16 04:00 Anisocytosis Not Reportable 08/19/16 04:00 Microcytosis Not Reportable 08/19/16 04:00 Macrocytosis Not Reportable 08/19/16 04:00 Spherocytes Not Reportable 08/19/16 04:00 Pappenheimer Bodies Not Reportable 08/19/16 04:00 Sickle Cells Not Reportable 08/19/16 04:00 Target Cells Not Reportable 08/19/16 04:00 Tear Drop Cells Not Reportable 08/19/16 04:00 Ovalocytes Not Reportable 08/19/16 04:00 Helmet Cells Not Reportable 08/19/16 04:00 [place] Bodies Not Reportable 08/19/16 04:00 [place] Rings Not Reportable 08/19/16 04:00 [place] Cells Not Reportable 08/19/16 04:00 Bite Cells Not Reportable 08/19/16 04:00 Crenated Cell Not Reportable 08/19/16 04:00 Elliptocytes Not Reportable 08/19/16 04:00 Acanthocytes (Spur) Not Reportable 08/19/16 04:00 Rouleaux Not Reportable 08/19/16 04:00 Hemoglobin C Crystals Not Reportable 08/19/16 04:00 Schistocytes Not Reportable 08/19/16 04:00 Malaria parasites Not Reportable 08/19/16 04:00 Ricci Bodies Not Reportable 08/19/16 04:00 Hem Pathologist Commnt No 08/19/16 04:00 POC ABG pH 7.358 (7.35-7.45) 08/16/16 15:26 POC ABG pCO2 43.4 (35-45) 08/16/16 15:26 POC ABG pO2 72 (80-105) L 08/16/16 15:26 POC ABG HCO3 24.4 08/16/16 15:26 POC ABG Total CO2 26 08/16/16 15:26 POC ABG O2 Sat 93 08/16/16 15:26 POC ABG Base Excess -1 08/16/16 15:26 VBG pH 7.309 (7.320-7.420) L 08/16/16 14:07 FiO2 28 % 08/16/16 15:26 Sodium 138 mmol/L (137-145) 08/19/16 04:00 Potassium 3.9 mmol/L (3.6-5.0) 08/19/16 04:00 Chloride 95.5 mmol/L (98-107) L 08/19/16 04:00 Carbon Dioxide 28 mmol/L (22-30) 08/19/16 04:00 Anion Gap 18 mmol/L 08/19/16 04:00 BUN 17 mg/dL (7-17) 08/19/16 04:00 Creatinine 0.6 mg/dL (0.7-1.2) L 08/19/16 04:00 Estimated GFR > 60 ml/min 08/19/16 04:00 BUN/Creatinine Ratio 28.33 % 08/19/16 04:00 Glucose 336 mg/dL (65-100) H 08/19/16 04:00 POC Glucose 355 (70-105) H 08/19/16 11:24 Hemoglobin A1c 11.6 % (4-6) H 08/16/16 14:07 Calcium 9.6 mg/dL (8.4-10.2) 08/19/16 04:00 Magnesium 2.10 mg/dL (1.7-2.3) 08/16/16 14:07 Total Bilirubin 0.20 mg/dL (0.1-1.2) 08/18/16 04:23 AST 23 units/L (5-40) 08/18/16 04:23 ALT 15 units/L (7-56) 08/18/16 04:23 Alkaline Phosphatase 102 units/L (35-129) 08/18/16 04:23 Troponin T < 0.010 ng/mL (0.00-0.029) 08/16/16 16:19 NT-Pro-B Natriuret Pep 258.0 pg/mL (0-900) 08/16/16 14:07 Total Protein 6.5 g/dL (6.3-8.2) 08/18/16 04:23 Albumin 3.7 g/dL (3.9-5) L 08/18/16 04:23 Albumin/Globulin Ratio 1.3 % 08/18/16 04:23 Urine Color Straw (Yellow) 08/16/16 14:24 Urine Turbidity Clear (Clear) 08/16/16 14:24 Urine pH 7.0 (5.0-7.0) 08/16/16 14:24 Ur Specific [place] 1.016 (1.003-1.030) 08/16/16 14:24 Urine Protein <15 mg/dl mg/dL (Negative) 08/16/16 14:24 Urine Glucose (UA) >=500 mg/dL (Negative) 08/16/16 14:24 Urine Ketones Neg mg/dL (Negative) 08/16/16 14:24 Urine Blood Neg (Negative) 08/16/16 14:24 Urine Nitrite Neg (Negative) 08/16/16 14:24 Urine Bilirubin Neg (Negative) 08/16/16 14:24 Urine Urobilinogen < 2.0 mg/dL (<2.0) 08/16/16 14:24 Ur Leukocyte Esterase Neg (Negative) 08/16/16 14:24 Urine WBC (Auto) 0.0 /HPF (0.0-6.0) 08/16/16 14:24 Urine RBC (Auto) < 1.0 /HPF (0.0-6.0) 08/16/16 14:24 U Epithel Cells (Auto) < 1.0 /HPF (0-13.0) 08/16/16 14:24
[2016-08-20] MEDS: NOVOLOG SUB-Q SCH ×5 (00:30→22:10)
[2016-08-20] MEDS: DUONEB 0.5 MG-3 MG/3 ML SOLN IH SCH ×4 (02:16→19:50)
[2016-08-20] MEDS: ARICEPT PO SCH (11:38)
[2016-08-20] MEDS: COZAAR PO SCH (11:38)
[2016-08-20] MEDS: MOBIC PO SCH (11:40)
[2016-08-20] MEDS: CYMBALTA PO SCH (11:40)
[2016-08-20] MEDS: NORVASC PO SCH (11:41)
[2016-08-20] MEDS: LEVAQUIN PO SCH (11:41)
[2016-08-20] MEDS: IMDUR PO SCH (11:41)
[2016-08-20] MEDS: LOVENOX SUB-Q SCH (11:42)
[2016-08-20] MEDS: DITROPAN XL PO SCH (11:54)
[2016-08-20] MEDS: LIORESAL PO SCH ×3 (11:54→21:19)
--- NOTE | 2016-08-20 12:15 | Progress Note ---
Assessment and Plan Assessment and plan: COPD exacerbation Acute hypercapnic respiratory failure Hypertension Bipolar disorder Dementia restless leg syndrome GERD Diabetes mellitus - Solu-Medrol, IV antibiotics, breathing treatment - Continue home medications - Sliding insulin insulin, accu checks DVT prophylaxis Lovenox - pending placement - Patient Problems (1) COPD exacerbation Current Visit: Yes Status: Acute History Interval history: Patient was seen and evaluated this morning, patient is breathing well. Patient needs placement. Hospitalist Physical - Physical exam Narrative exam: Not in cardiopulmonary distress. The patient appeared well nourished and normally developed. Vital signs as documented. Head exam is unremarkable. No scleral icterus . Neck is without jugular venous distension, thyromegaly, or carotid bruits. Chest: wheezing allover the chest. Cardiac exam reveals regular rate and Rhythm. First and second heart sounds normal. No murmurs, rubs or gallops. Abdominal exam reveals normal bowel sounds, no masses, no organomegaly and no aortic enlargement. Extremities are nonedematous and both femoral and pedal pulses are normal. BEEF SPECIALIST: Alert and oriented 3. No focal weakness. - Constitutional Vitals: Temp Pulse Resp BP Pulse Ox 97.5 F L 78 18 167/86 95 08/20/16 07:00 08/20/16 08:00 08/20/16 08:00 08/20/16 07:00 08/20/16 10:00 Results - Labs CBC & Chem 7: 08/19/16 04:00 08/19/16 04:00 Labs: Laboratory Last Values WBC 9.9 K/mm3 (4.5-11.0) 08/19/16 04:00 RBC 4.82 M/mm3 (3.65-5.03) 08/19/16 04:00 Hgb 12.9 gm/dl (10.1-14.3) 08/19/16 04:00 Hct 40.0 % (30.3-42.9) 08/19/16 04:00 MCV 83 fl (79-97) 08/19/16 04:00 MCH 27 pg (28-32) L 08/19/16 04:00 MCHC 32 % (30-34) 08/19/16 04:00 RDW 15.1 % (13.2-15.2) 08/19/16 04:00 Plt Count 391 K/mm3 (140-440) 08/19/16 04:00 Lymph % (Auto) 5.9 % (13.4-35.0) L 08/18/16 04:23 [place] % (Auto) 5.4 % (0.0-7.3) 08/18/16 04:23 Eos % (Auto) 0.0 % (0.0-4.3) 08/18/16 04:23 Baso % (Auto) 0.1 % (0.0-1.8) 08/18/16 04:23 Lymph # 0.6 K/mm3 (1.2-5.4) L 08/18/16 04:23 [place] # 0.6 K/mm3 (0.0-0.8) 08/18/16 04:23 Eos # 0.0 K/mm3 (0.0-0.4) 08/18/16 04:23 Baso # 0.0 K/mm3 (0.0-0.1) 08/18/16 04:23 Add Manual Diff Complete 08/19/16 04:00 Total Counted 100 08/19/16 04:00 Seg Neutrophils % Fitter / Welder 08/19/16 04:00 Seg Neuts % (Manual) 96.0 % (40.0-70.0) H 08/19/16 04:00 Band Neutrophils % 1.0 % 08/19/16 04:00 Lymphocytes % (Manual) 2.0 % (13.4-35.0) L 08/19/16 04:00 Reactive Lymphs % (Man) 0 % 08/19/16 04:00 Monocytes % (Manual) 1.0 % (0.0-7.3) 08/19/16 04:00 Eosinophils % (Manual) 0 % (0.0-4.3) 08/19/16 04:00 Basophils % (Manual) 0 % (0.0-1.8) 08/19/16 04:00 Metamyelocytes % 0 % 08/19/16 04:00 Myelocytes % 0 % 08/19/16 04:00 Promyelocytes % 0 % 08/19/16 04:00 Blast Cells % 0 % 08/19/16 04:00 Nucleated RBC % Not Reportable 08/19/16 04:00 Seg Neutrophils # 9.6 K/mm3 (1.8-7.7) H 08/18/16 04:23 Seg Neutrophils # Man 9.5 K/mm3 (1.8-7.7) H 08/19/16 04:00 Band Neutrophils # 0.1 K/mm3 08/19/16 04:00 Lymphocytes # (Manual) 0.2 K/mm3 (1.2-5.4) L 08/19/16 04:00 Abs React Lymphs (Man) 0.0 K/mm3 08/19/16 04:00 Monocytes # (Manual) 0.1 K/mm3 (0.0-0.8) 08/19/16 04:00 Eosinophils # (Manual) 0.0 K/mm3 (0.0-0.4) 08/19/16 04:00 Basophils # (Manual) 0.0 K/mm3 (0.0-0.1) 08/19/16 04:00 Metamyelocytes # 0.0 K/mm3 08/19/16 04:00 Myelocytes # 0.0 K/mm3 08/19/16 04:00 Promyelocytes # 0.0 K/mm3 08/19/16 04:00 Blast Cells # 0.0 K/mm3 08/19/16 04:00 WBC Morphology Not Reportable 08/19/16 04:00 Hypersegmented Neuts Not Reportable 08/19/16 04:00 Hyposegmented Neuts Not Reportable 08/19/16 04:00 Hypogranular Neuts Not Reportable 08/19/16 04:00 Smudge Cells Not Reportable 08/19/16 04:00 Toxic Granulation Not Reportable 08/19/16 04:00 Toxic Vacuolation Not Reportable 08/19/16 04:00 Dohle Bodies Not Reportable 08/19/16 04:00 Pelger-Huet Anomaly Not Reportable 08/19/16 04:00 Sparkle Rods Not Reportable 08/19/16 04:00 Platelet Estimate Appears normal 08/19/16 04:00 Clumped Platelets Not Reportable 08/19/16 04:00 Plt Clumps, EDTA Not Reportable 08/19/16 04:00 Large Platelets Not Reportable 08/19/16 04:00 Giant Platelets Not Reportable 08/19/16 04:00 Platelet Satelliting Not Reportable 08/19/16 04:00 Plt Morphology Comment Not Reportable 08/19/16 04:00 RBC Morphology Normal 08/19/16 04:00 Dimorphic RBCs Not Reportable 08/19/16 04:00 Polychromasia Not Reportable 08/19/16 04:00 Hypochromasia Not Reportable 08/19/16 04:00 Poikilocytosis Not Reportable 08/19/16 04:00 Anisocytosis Not Reportable 08/19/16 04:00 Microcytosis Not Reportable 08/19/16 04:00 Macrocytosis Not Reportable 08/19/16 04:00 Spherocytes Not Reportable 08/19/16 04:00 Pappenheimer Bodies Not Reportable 08/19/16 04:00 Sickle Cells Not Reportable 08/19/16 04:00 Target Cells Not Reportable 08/19/16 04:00 Tear Drop Cells Not Reportable 08/19/16 04:00 Ovalocytes Not Reportable 08/19/16 04:00 Helmet Cells Not Reportable 08/19/16 04:00 Rivera-[place] Bodies Not Reportable 08/19/16 04:00 [place] Rings Not Reportable 08/19/16 04:00 Shahbaz Cells Not Reportable 08/19/16 04:00 Bite Cells Not Reportable 08/19/16 04:00 Crenated Cell Not Reportable 08/19/16 04:00 Elliptocytes Not Reportable 08/19/16 04:00 Acanthocytes (Spur) Not Reportable 08/19/16 04:00 Rouleaux Not Reportable 08/19/16 04:00 Hemoglobin C Crystals Not Reportable 08/19/16 04:00 Schistocytes Not Reportable 08/19/16 04:00 Malaria parasites Not Reportable 08/19/16 04:00 Ricci Bodies Not Reportable 08/19/16 04:00 Hem Pathologist Commnt No 08/19/16 04:00 POC ABG pH 7.358 (7.35-7.45) 08/16/16 15:26 POC ABG pCO2 43.4 (35-45) 08/16/16 15:26 POC ABG pO2 72 (80-105) L 08/16/16 15:26 POC ABG HCO3 24.4 08/16/16 15:26 POC ABG Total CO2 26 08/16/16 15:26 POC ABG O2 Sat 93 08/16/16 15:26 POC ABG Base Excess -1 08/16/16 15:26 VBG pH 7.309 (7.320-7.420) L 08/16/16 14:07 FiO2 28 % 08/16/16 15:26 Sodium 138 mmol/L (137-145) 08/19/16 04:00 Potassium 3.9 mmol/L (3.6-5.0) 08/19/16 04:00 Chloride 95.5 mmol/L (98-107) L 08/19/16 04:00 Carbon Dioxide 28 mmol/L (22-30) 08/19/16 04:00 Anion Gap 18 mmol/L 08/19/16 04:00 BUN 17 mg/dL (7-17) 08/19/16 04:00 Creatinine 0.6 mg/dL (0.7-1.2) L 08/19/16 04:00 Estimated GFR > 60 ml/min 08/19/16 04:00 BUN/Creatinine Ratio 28.33 % 08/19/16 04:00 Glucose 336 mg/dL (65-100) H 08/19/16 04:00 POC Glucose 217 (70-105) H 08/20/16 06:42 Hemoglobin A1c 11.6 % (4-6) H 08/16/16 14:07 Calcium 9.6 mg/dL (8.4-10.2) 08/19/16 04:00 Magnesium 2.10 mg/dL (1.7-2.3) 08/16/16 14:07 Total Bilirubin 0.20 mg/dL (0.1-1.2) 08/18/16 04:23 AST 23 units/L (5-40) 08/18/16 04:23 ALT 15 units/L (7-56) 08/18/16 04:23 Alkaline Phosphatase 102 units/L (35-129) 08/18/16 04:23 Troponin T < 0.010 ng/mL (0.00-0.029) 08/16/16 16:19 NT-Pro-B Natriuret Pep 258.0 pg/mL (0-900) 08/16/16 14:07 Total Protein 6.5 g/dL (6.3-8.2) 08/18/16 04:23 Albumin 3.7 g/dL (3.9-5) L 08/18/16 04:23 Albumin/Globulin Ratio 1.3 % 08/18/16 04:23 Urine Color Straw (Yellow) 08/16/16 14:24 Urine Turbidity Clear (Clear) 08/16/16 14:24 Urine pH 7.0 (5.0-7.0) 08/16/16 14:24 Ur Specific [place] 1.016 (1.003-1.030) 08/16/16 14:24 Urine Protein <15 mg/dl mg/dL (Negative) 08/16/16 14:24 Urine Glucose (UA) >=500 mg/dL (Negative) 08/16/16 14:24 Urine Ketones Neg mg/dL (Negative) 08/16/16 14:24 Urine Blood Neg (Negative) 08/16/16 14:24 Urine Nitrite Neg (Negative) 08/16/16 14:24 Urine Bilirubin Neg (Negative) 08/16/16 14:24 Urine Urobilinogen < 2.0 mg/dL (<2.0) 08/16/16 14:24 Ur Leukocyte Esterase Neg (Negative) 08/16/16 14:24 Urine WBC (Auto) 0.0 /HPF (0.0-6.0) 08/16/16 14:24 Urine RBC (Auto) < 1.0 /HPF (0.0-6.0) 08/16/16 14:24 U Epithel Cells (Auto) < 1.0 /HPF (0-13.0) 08/16/16 14:24
--- NOTE | 2016-08-20 12:18 | Progress Note ---
Assessment and Plan (1) Acute exacerbation of chronic obstructive pulmonary disease (COPD) Current Visit: Yes Status: Acute Plan to address problem: - continue systemic steroids and taper - added LABA - continue BEA - wean oxygen to keep sats > 92% - complete empiric AB's course - prn BIPAP (2) Obesity Current Visit: Yes Status: Acute Qualifiers: Obesity type: O Obesity severity: O Plan to address problem: - weight loss counselled - sleep clinic evaluation Subjective Date of service: 08/20/16 Principal diagnosis: Acute COPD exacerbation Interval history: Seen and examined at bedside; 24 hour events reviewed; nursing and respiratory care staff consulted; no adverse overnight events reported to me; wheezing improved; looks more alert; denies acute chest pains or increased SOB Objective Vital Signs - 12hr 08/20/16 08/20/16 08/20/16 02:00 02:30 07:00 Temperature 97.5 F L Pulse Rate [ 77 77 Anterior Bilateral Throughout] Pulse Rate [ 89 Left Radial] Respiratory 20 Rate Respiratory 15 18 Rate [Anterior Bilateral Throughout] Blood Pressure 167/86 [Left Arm] O2 Sat by Pulse 96 Oximetry 08/20/16 08/20/16 08/20/16 07:50 08:00 10:00 Temperature Pulse Rate [ 78 78 Anterior Bilateral Throughout] Pulse Rate [ Left Radial] Respiratory Rate Respiratory 18 18 Rate [Anterior Bilateral Throughout] Blood Pressure [Left Arm] O2 Sat by Pulse 95 Oximetry Constitutional: no acute distress Eyes: non-icteric ENT: oropharynx moist Neck: supple, no lymphadenopathy Effort: mildly labored Ascultation: Bilateral: diminished breath sounds, wheezes (faint expiratory) Cardiovascular: regular rate and rhythm Gastrointestinal: normoactive bowel sounds, soft, non-tender, non-distended Integumentary: normal Extremities: no cyanosis, no edema, pink and warm, pulses normal Neurologic: normal mental status, non-focal exam, pupils equal and round, motor strength normal and Psychiatric: mood appropriate, affect normal CBC and BMP: 08/19/16 04:00 08/19/16 04:00 ABG, PT/INR, D-dimer: ABG POC ABG pH 7.358 (7.35-7.45) 08/16/16 15:26 POC ABG pCO2 43.4 (35-45) 08/16/16 15:26 POC ABG pO2 72 (80-105) L 08/16/16 15:26 POC ABG HCO3 24.4 08/16/16 15:26 POC ABG Total CO2 26 08/16/16 15:26 POC ABG O2 Sat 93 08/16/16 15:26 Abnormal lab findings: Abnormal Labs 08/17/16 08/17/16 08/17/16 06:18 11:14 16:38 MCH RDW Lymph % (Auto) Lymph # Seg Neutrophils % Seg Neuts % (Manual) Lymphocytes % (Manual) Seg Neutrophils # Seg Neutrophils # Man Lymphocytes # (Manual) Chloride Creatinine Glucose POC Glucose 222 H 412 H 395 H Albumin 08/17/16 08/18/16 08/18/16 21:24 04:23 04:23 MCH 26 L RDW 15.4 H Lymph % (Auto) 5.9 L Lymph # 0.6 L Seg Neutrophils % 88.6 H Seg Neuts % (Manual) Lymphocytes % (Manual) Seg Neutrophils # 9.6 H Seg Neutrophils # Man Lymphocytes # (Manual) Chloride Creatinine 0.5 L Glucose 276 H POC Glucose 305 H Albumin 3.7 L 08/18/16 08/18/16 08/18/16 05:21 11:41 16:52 MCH RDW Lymph % (Auto) Lymph # Seg Neutrophils % Seg Neuts % (Manual) Lymphocytes % (Manual) Seg Neutrophils # Seg Neutrophils # Man Lymphocytes # (Manual) Chloride Creatinine Glucose POC Glucose 304 H 450 H 338 H Albumin 08/18/16 08/19/16 08/19/16 20:53 04:00 04:00 MCH 27 L RDW Lymph % (Auto) Lymph # Seg Neutrophils % Seg Neuts % (Manual) 96.0 H Lymphocytes % (Manual) 2.0 L Seg Neutrophils # Seg Neutrophils # Man 9.5 H Lymphocytes # (Manual) 0.2 L Chloride 95.5 L Creatinine 0.6 L Glucose 336 H POC Glucose 394 H Albumin 08/19/16 08/19/16 08/19/16 06:23 11:24 16:59 MCH RDW Lymph % (Auto) Lymph # Seg Neutrophils % Seg Neuts % (Manual) Lymphocytes % (Manual) Seg Neutrophils # Seg Neutrophils # Man Lymphocytes # (Manual) Chloride Creatinine Glucose POC Glucose 342 H 355 H 392 H Albumin 08/19/16 08/20/16 21:14 06:42 MCH RDW Lymph % (Auto) Lymph # Seg Neutrophils % Seg Neuts % (Manual) Lymphocytes % (Manual) Seg Neutrophils # Seg Neutrophils # Man Lymphocytes # (Manual) Chloride Creatinine Glucose POC Glucose 304 H 217 H Albumin
[2016-08-20] MEDS: REMERON PO SCH (18:11)
[2016-08-20] MEDS: PROTONIX PO SCH (18:23)
[2016-08-20] MEDS: NAMENDA XR PO SCH (18:23)
[2016-08-20] MEDS: ROBITUSSIN DM PO PRN (18:25)
[2016-08-21] MEDS: DUONEB 0.5 MG-3 MG/3 ML SOLN IH SCH ×3 (01:44→13:03)
[2016-08-21] MEDS: NOVOLOG SUB-Q SCH ×2 (08:11→11:48)
[2016-08-21] MEDS: LIORESAL PO SCH ×2 (08:12→13:14)
[2016-08-21] MEDS: NAMENDA XR PO SCH (09:04)
[2016-08-21] MEDS: IMDUR PO SCH (09:04)
[2016-08-21] MEDS: REMERON PO SCH (09:05)
[2016-08-21] MEDS: NORVASC PO SCH (09:05)
[2016-08-21] MEDS: MOBIC PO SCH (09:06)
[2016-08-21] MEDS: LEVAQUIN PO SCH (09:06)
[2016-08-21] MEDS: ARICEPT PO SCH (09:06)
[2016-08-21] MEDS: COZAAR PO SCH (09:07)
[2016-08-21] MEDS: CYMBALTA PO SCH (09:08)
[2016-08-21] MEDS: LOVENOX SUB-Q SCH (09:08)
[2016-08-21] MEDS: PROTONIX PO SCH (09:17)
[2016-08-21] MEDS: DITROPAN XL PO SCH (09:17)
--- NOTE | 2016-08-21 12:04 | Progress Note ---
Assessment and Plan Assessment and plan: COPD exacerbation Acute hypercapnic respiratory failure Hypertension Bipolar disorder Depression dementia restless leg syndrome GERD Diabetes mellitus - Solu-Medrol, IV antibiotics, breathing treatment - Continue home medications - Sliding insulin insulin, and basal insulin, accuchecks DVT prophylaxis Lovenox - pending placement - Patient Problems (1) COPD exacerbation Current Visit: Yes Status: Acute History Interval history: Patient was seen and evaluated this morning, patient said she is breathing well. The patient made her self off oxygen and looks breathing fast. patient looks agitated and wanted to go home. Patient triggered level 2 and can't go to personal home care. patient's daughter was contacted yesterday and said she will sign her AMA but didn't happen. Hospitalist Physical - Physical exam Narrative exam: In mild cardiopulmonary distress. The patient appeared well nourished and normally developed. Vital signs as documented. Head exam is unremarkable. No scleral icterus . Neck is without jugular venous distension, thyromegaly, or carotid bruits. Lungs significant coarse breathing all over. Cardiac exam reveals regular rate and Rhythm. First and second heart sounds normal. No murmurs, rubs or gallops. Abdominal exam reveals normal bowel sounds, no masses, no organomegaly and no aortic enlargement. Extremities are nonedematous and both femoral and pedal pulses are normal. SECURITIES SALES ASSOCIATE: Alert and oriented 3. No focal weakness. Psych: patient is anxious - Constitutional Vitals: Temp Pulse Resp BP Pulse Ox 97.6 F 95 H 20 140/74 91 08/21/16 07:40 08/21/16 09:07 08/21/16 08:16 08/21/16 09:07 08/21/16 07:40 Results - Labs CBC & Chem 7: 08/19/16 04:00 08/19/16 04:00 Labs: Laboratory Last Values WBC 9.9 K/mm3 (4.5-11.0) 08/19/16 04:00 RBC 4.82 M/mm3 (3.65-5.03) 08/19/16 04:00 Hgb 12.9 gm/dl (10.1-14.3) 08/19/16 04:00 Hct 40.0 % (30.3-42.9) 08/19/16 04:00 MCV 83 fl (79-97) 08/19/16 04:00 MCH 27 pg (28-32) L 08/19/16 04:00 MCHC 32 % (30-34) 08/19/16 04:00 RDW 15.1 % (13.2-15.2) 08/19/16 04:00 Plt Count 391 K/mm3 (140-440) 08/19/16 04:00 Lymph % (Auto) 5.9 % (13.4-35.0) L 08/18/16 04:23 [place] % (Auto) 5.4 % (0.0-7.3) 08/18/16 04:23 Eos % (Auto) 0.0 % (0.0-4.3) 08/18/16 04:23 Baso % (Auto) 0.1 % (0.0-1.8) 08/18/16 04:23 Lymph # 0.6 K/mm3 (1.2-5.4) L 08/18/16 04:23 [place] # 0.6 K/mm3 (0.0-0.8) 08/18/16 04:23 Eos # 0.0 K/mm3 (0.0-0.4) 08/18/16 04:23 Baso # 0.0 K/mm3 (0.0-0.1) 08/18/16 04:23 Add Manual Diff Complete 08/19/16 04:00 Total Counted 100 08/19/16 04:00 Seg Neutrophils % Actimize Architect 08/19/16 04:00 Seg Neuts % (Manual) 96.0 % (40.0-70.0) H 08/19/16 04:00 Band Neutrophils % 1.0 % 08/19/16 04:00 Lymphocytes % (Manual) 2.0 % (13.4-35.0) L 08/19/16 04:00 Reactive Lymphs % (Man) 0 % 08/19/16 04:00 Monocytes % (Manual) 1.0 % (0.0-7.3) 08/19/16 04:00 Eosinophils % (Manual) 0 % (0.0-4.3) 08/19/16 04:00 Basophils % (Manual) 0 % (0.0-1.8) 08/19/16 04:00 Metamyelocytes % 0 % 08/19/16 04:00 Myelocytes % 0 % 08/19/16 04:00 Promyelocytes % 0 % 08/19/16 04:00 Blast Cells % 0 % 08/19/16 04:00 Nucleated RBC % Not Reportable 08/19/16 04:00 Seg Neutrophils # 9.6 K/mm3 (1.8-7.7) H 08/18/16 04:23 Seg Neutrophils # Man 9.5 K/mm3 (1.8-7.7) H 08/19/16 04:00 Band Neutrophils # 0.1 K/mm3 08/19/16 04:00 Lymphocytes # (Manual) 0.2 K/mm3 (1.2-5.4) L 08/19/16 04:00 Abs React Lymphs (Man) 0.0 K/mm3 08/19/16 04:00 Monocytes # (Manual) 0.1 K/mm3 (0.0-0.8) 08/19/16 04:00 Eosinophils # (Manual) 0.0 K/mm3 (0.0-0.4) 08/19/16 04:00 Basophils # (Manual) 0.0 K/mm3 (0.0-0.1) 08/19/16 04:00 Metamyelocytes # 0.0 K/mm3 08/19/16 04:00 Myelocytes # 0.0 K/mm3 08/19/16 04:00 Promyelocytes # 0.0 K/mm3 08/19/16 04:00 Blast Cells # 0.0 K/mm3 08/19/16 04:00 WBC Morphology Not Reportable 08/19/16 04:00 Hypersegmented Neuts Not Reportable 08/19/16 04:00 Hyposegmented Neuts Not Reportable 08/19/16 04:00 Hypogranular Neuts Not Reportable 08/19/16 04:00 Smudge Cells Not Reportable 08/19/16 04:00 Toxic Granulation Not Reportable 08/19/16 04:00 Toxic Vacuolation Not Reportable 08/19/16 04:00 Dohle Bodies Not Reportable 08/19/16 04:00 Pelger-Huet Anomaly Not Reportable 08/19/16 04:00 Sparkle Rods Not Reportable 08/19/16 04:00 Platelet Estimate Appears normal 08/19/16 04:00 Clumped Platelets Not Reportable 08/19/16 04:00 Plt Clumps, EDTA Not Reportable 08/19/16 04:00 Large Platelets Not Reportable 08/19/16 04:00 Giant Platelets Not Reportable 08/19/16 04:00 Platelet Satelliting Not Reportable 08/19/16 04:00 Plt Morphology Comment Not Reportable 08/19/16 04:00 RBC Morphology Normal 08/19/16 04:00 Dimorphic RBCs Not Reportable 08/19/16 04:00 Polychromasia Not Reportable 08/19/16 04:00 Hypochromasia Not Reportable 08/19/16 04:00 Poikilocytosis Not Reportable 08/19/16 04:00 Anisocytosis Not Reportable 08/19/16 04:00 Microcytosis Not Reportable 08/19/16 04:00 Macrocytosis Not Reportable 08/19/16 04:00 Spherocytes Not Reportable 08/19/16 04:00 Pappenheimer Bodies Not Reportable 08/19/16 04:00 Sickle Cells Not Reportable 08/19/16 04:00 Target Cells Not Reportable 08/19/16 04:00 Tear Drop Cells Not Reportable 08/19/16 04:00 Ovalocytes Not Reportable 08/19/16 04:00 Helmet Cells Not Reportable 08/19/16 04:00 Rivera-[place] Bodies Not Reportable 08/19/16 04:00 [place] Rings Not Reportable 08/19/16 04:00 Shahbaz Cells Not Reportable 08/19/16 04:00 Bite Cells Not Reportable 08/19/16 04:00 Crenated Cell Not Reportable 08/19/16 04:00 Elliptocytes Not Reportable 08/19/16 04:00 Acanthocytes (Spur) Not Reportable 08/19/16 04:00 Rouleaux Not Reportable 08/19/16 04:00 Hemoglobin C Crystals Not Reportable 08/19/16 04:00 Schistocytes Not Reportable 08/19/16 04:00 Malaria parasites Not Reportable 08/19/16 04:00 Ricci Bodies Not Reportable 08/19/16 04:00 Hem Pathologist Commnt No 08/19/16 04:00 POC ABG pH 7.358 (7.35-7.45) 08/16/16 15:26 POC ABG pCO2 43.4 (35-45) 08/16/16 15:26 POC ABG pO2 72 (80-105) L 08/16/16 15:26 POC ABG HCO3 24.4 08/16/16 15:26 POC ABG Total CO2 26 08/16/16 15:26 POC ABG O2 Sat 93 08/16/16 15:26 POC ABG Base Excess -1 08/16/16 15:26 VBG pH 7.309 (7.320-7.420) L 08/16/16 14:07 FiO2 28 % 08/16/16 15:26 Sodium 138 mmol/L (137-145) 08/19/16 04:00 Potassium 3.9 mmol/L (3.6-5.0) 08/19/16 04:00 Chloride 95.5 mmol/L (98-107) L 08/19/16 04:00 Carbon Dioxide 28 mmol/L (22-30) 08/19/16 04:00 Anion Gap 18 mmol/L 08/19/16 04:00 BUN 17 mg/dL (7-17) 08/19/16 04:00 Creatinine 0.6 mg/dL (0.7-1.2) L 08/19/16 04:00 Estimated GFR > 60 ml/min 08/19/16 04:00 BUN/Creatinine Ratio 28.33 % 08/19/16 04:00 Glucose 336 mg/dL (65-100) H 08/19/16 04:00 POC Glucose 414 (70-105) H 08/21/16 11:16 Hemoglobin A1c 11.6 % (4-6) H 08/16/16 14:07 Calcium 9.6 mg/dL (8.4-10.2) 08/19/16 04:00 Magnesium 2.10 mg/dL (1.7-2.3) 08/16/16 14:07 Total Bilirubin 0.20 mg/dL (0.1-1.2) 08/18/16 04:23 AST 23 units/L (5-40) 08/18/16 04:23 ALT 15 units/L (7-56) 08/18/16 04:23 Alkaline Phosphatase 102 units/L (35-129) 08/18/16 04:23 Troponin T < 0.010 ng/mL (0.00-0.029) 08/16/16 16:19 NT-Pro-B Natriuret Pep 258.0 pg/mL (0-900) 08/16/16 14:07 Total Protein 6.5 g/dL (6.3-8.2) 08/18/16 04:23 Albumin 3.7 g/dL (3.9-5) L 08/18/16 04:23 Albumin/Globulin Ratio 1.3 % 08/18/16 04:23 Urine Color Straw (Yellow) 08/16/16 14:24 Urine Turbidity Clear (Clear) 08/16/16 14:24 Urine pH 7.0 (5.0-7.0) 08/16/16 14:24 Ur Specific [place] 1.016 (1.003-1.030) 08/16/16 14:24 Urine Protein <15 mg/dl mg/dL (Negative) 08/16/16 14:24 Urine Glucose (UA) >=500 mg/dL (Negative) 08/16/16 14:24 Urine Ketones Neg mg/dL (Negative) 08/16/16 14:24 Urine Blood Neg (Negative) 08/16/16 14:24 Urine Nitrite Neg (Negative) 08/16/16 14:24 Urine Bilirubin Neg (Negative) 08/16/16 14:24 Urine Urobilinogen < 2.0 mg/dL (<2.0) 08/16/16 14:24 Ur Leukocyte Esterase Neg (Negative) 08/16/16 14:24 Urine WBC (Auto) 0.0 /HPF (0.0-6.0) 08/16/16 14:24 Urine RBC (Auto) < 1.0 /HPF (0.0-6.0) 08/16/16 14:24 U Epithel Cells (Auto) < 1.0 /HPF (0-13.0) 08/16/16 14:24
--- NOTE | 2016-08-21 12:50 | Progress Note ---
Subjective Date of service: 08/21/16 Principal diagnosis: Acute COPD exacerbation Interval history: Seen and examined at bedside; 24 hour events reviewed; nursing and respiratory care staff consulted; no adverse overnight events reported to me; Objective Vital Signs - 12hr 08/21/16 08/21/16 08/21/16 01:44 01:55 07:24 Temperature Pulse Rate Pulse Rate [ 68 90 95 H Anterior Bilateral Throughout] Pulse Rate [ Left Radial] Respiratory Rate Respiratory 18 18 20 Rate [Anterior Bilateral Throughout] Blood Pressure Blood Pressure [Left Arm] O2 Sat by Pulse Oximetry 08/21/16 08/21/16 08/21/16 07:25 07:40 08:16 Temperature 97.6 F Pulse Rate Pulse Rate [ Anterior Bilateral Throughout] Pulse Rate [ 95 H 95 H Left Radial] Respiratory 20 20 Rate Respiratory Rate [Anterior Bilateral Throughout] Blood Pressure Blood Pressure 140/74 [Left Arm] O2 Sat by Pulse 94 91 Oximetry 08/21/16 08/21/16 08/21/16 09:04 09:05 09:07 Temperature Pulse Rate 95 H 95 H 95 H Pulse Rate [ Anterior Bilateral Throughout] Pulse Rate [ Left Radial] Respiratory Rate Respiratory Rate [Anterior Bilateral Throughout] Blood Pressure 140/74 140/74 140/74 Blood Pressure [Left Arm] O2 Sat by Pulse Oximetry Constitutional: no acute distress Eyes: non-icteric ENT: oropharynx moist Neck: supple, no lymphadenopathy Effort: mildly labored Ascultation: Bilateral: diminished breath sounds, rales Cardiovascular: regular rate and rhythm Gastrointestinal: normoactive bowel sounds, soft, non-tender, non-distended Integumentary: normal Extremities: no cyanosis, no edema, pink and warm, pulses normal Neurologic: normal mental status, non-focal exam, pupils equal and round, motor strength normal and Psychiatric: mood appropriate, affect normal CBC and BMP: 08/19/16 04:00 08/19/16 04:00 ABG, PT/INR, D-dimer: ABG POC ABG pH 7.358 (7.35-7.45) 08/16/16 15:26 POC ABG pCO2 43.4 (35-45) 08/16/16 15:26 POC ABG pO2 72 (80-105) L 08/16/16 15:26 POC ABG HCO3 24.4 08/16/16 15:26 POC ABG Total CO2 26 08/16/16 15:26 POC ABG O2 Sat 93 08/16/16 15:26 Abnormal lab findings: Abnormal Labs 08/17/16 08/17/16 08/17/16 06:18 11:14 16:38 MCH RDW Lymph % (Auto) Lymph # Seg Neutrophils % Seg Neuts % (Manual) Lymphocytes % (Manual) Seg Neutrophils # Seg Neutrophils # Man Lymphocytes # (Manual) Chloride Creatinine Glucose POC Glucose 222 H 412 H 395 H Albumin 08/17/16 08/18/16 08/18/16 21:24 04:23 04:23 MCH 26 L RDW 15.4 H Lymph % (Auto) 5.9 L Lymph # 0.6 L Seg Neutrophils % 88.6 H Seg Neuts % (Manual) Lymphocytes % (Manual) Seg Neutrophils # 9.6 H Seg Neutrophils # Man Lymphocytes # (Manual) Chloride Creatinine 0.5 L Glucose 276 H POC Glucose 305 H Albumin 3.7 L 08/18/16 08/18/16 08/18/16 05:21 11:41 16:52 MCH RDW Lymph % (Auto) Lymph # Seg Neutrophils % Seg Neuts % (Manual) Lymphocytes % (Manual) Seg Neutrophils # Seg Neutrophils # Man Lymphocytes # (Manual) Chloride Creatinine Glucose POC Glucose 304 H 450 H 338 H Albumin 08/18/16 08/19/16 08/19/16 20:53 04:00 04:00 MCH 27 L RDW Lymph % (Auto) Lymph # Seg Neutrophils % Seg Neuts % (Manual) 96.0 H Lymphocytes % (Manual) 2.0 L Seg Neutrophils # Seg Neutrophils # Man 9.5 H Lymphocytes # (Manual) 0.2 L Chloride 95.5 L Creatinine 0.6 L Glucose 336 H POC Glucose 394 H Albumin 08/19/16 08/19/16 08/19/16 06:23 11:24 16:59 MCH RDW Lymph % (Auto) Lymph # Seg Neutrophils % Seg Neuts % (Manual) Lymphocytes % (Manual) Seg Neutrophils # Seg Neutrophils # Man Lymphocytes # (Manual) Chloride Creatinine Glucose POC Glucose 342 H 355 H 392 H Albumin 08/19/16 08/20/16 08/20/16 21:14 06:42 11:06 MCH RDW Lymph % (Auto) Lymph # Seg Neutrophils % Seg Neuts % (Manual) Lymphocytes % (Manual) Seg Neutrophils # Seg Neutrophils # Man Lymphocytes # (Manual) Chloride Creatinine Glucose POC Glucose 304 H 217 H 377 H Albumin 08/20/16 08/20/16 08/21/16 15:50 21:01 06:02 MCH RDW Lymph % (Auto) Lymph # Seg Neutrophils % Seg Neuts % (Manual) Lymphocytes % (Manual) Seg Neutrophils # Seg Neutrophils # Man Lymphocytes # (Manual) Chloride Creatinine Glucose POC Glucose 373 H 349 H 285 H Albumin 08/21/16 11:16 MCH RDW Lymph % (Auto) Lymph # Seg Neutrophils % Seg Neuts % (Manual) Lymphocytes % (Manual) Seg Neutrophils # Seg Neutrophils # Man Lymphocytes # (Manual) Chloride Creatinine Glucose POC Glucose 414 H Albumin
[2016-08-21 16:16] VITALS: BP 121/76
[2016-08-21] MEDS ORDERED: PULMICORT IH SCH (20:00)
[2016-08-21] MEDS ORDERED: BROVANA NEBU IH SCH (20:00)
[2016-08-21 23:21] LABS: B-Hydroxybutyrate 0.2 mmol/L (0.2 - 0.28)
--- NOTE | 2016-08-22 11:28 | Discharge Summary ---
Providers - Providers Date of Admission: 08/17/16 00:38 Date of discharge: 08/21/16 Attending physician: AMADEO TAM MD 08/17/16 00:39 Consult to Physician [CONS] Routine Consulting Provider: CANDI العراقي Reason For Exam: [facility] consult to:: pulmon Notified:: office Phone number called:: [phone] Was contact made?: Yes If yes, spoke with:: Lety Time called:: 11:02 08/18/16 09:56 Physical Therapy Evaluation and Treat [CONS] Urgent Comment: Reason For Exam: Physical therapy eval for SNF placement Primary care physician: JUAN HONG Hospitalization Condition: Fair Hospital course: 60-year-old female with medical history significant for COPD, bipolar disorder, depression, mild dementia, hypertension, coronary artery disease, DM, urinary incontinence presented to the emergency department complaining of worsening of SOB forthr past 3 days. She also complained increased wheezing, cough productive of yellowish sputum. She denied fever or chills. She has mild exertional dyspnea. She denied any chest pain or palpitations. Patient came from [facility]. Patient was admitted to the floor she was treated with IV antibiotics, Solu- Medrol, breathing treatment, oxygen support. Home medications were resumed. The patient showed improvement. On discharge planning because of her psych issues she needs more care so we couldn't discharge back to personal home care. Yesterday the patient was asked to go home and we told her we are looking into place for her that is going to give her comprehensive care, but the patient was not happy and insisted to go home and agitated. She she was still winded and he needs more treatment either here or in [facility]. Yesterday afternoon her daughter came and sign AMA, took her mom to home. We have explained the risk benefits and she understood and sign AMA. Disposition: LEFT AGAINST MEDICAL ADVICE - Discharge Diagnoses (1) COPD exacerbation Status: Acute Core Measure Documentation - Palliative Care Palliative Care/ Comfort Measures: Not Applicable - Core Measures Any of the following diagnoses?: none Exam - Physical Exam Narrative exam: In mild cardiopulmonary distress. The patient appeared well nourished and normally developed. Vital signs as documented. Head exam is unremarkable. No scleral icterus . Neck is without jugular venous distension, thyromegaly, or carotid bruits. Lungs significant coarse breathing all over. Cardiac exam reveals regular rate and Rhythm. First and second heart sounds normal. No murmurs, rubs or gallops. Abdominal exam reveals normal bowel sounds, no masses, no organomegaly and no aortic enlargement. Extremities are nonedematous and both femoral and pedal pulses are normal. CENTER MGR: Alert and oriented 3. No focal weakness. Psych: patient is anxious - Constitutional Vitals: Temp Pulse Resp BP Pulse Ox 98.4 F 118 H 20 121/76 93 08/21/16 15:05 08/21/16 15:05 08/21/16 15:08/21/16 15:08/21/16 11:30 Plan Activity: other (left AMA) Weight Bearing Status: Full Weight Bearing Diet: other (left AMA) Follow up with: JUAN HONG MD [Primary Care Provider] - 2-3 Days Forms: AMA Form Prescriptions: ALBUTEROL Inhaler [ProAir HFA Inhaler] 2 puff IH QID PRN #2 inhalation PRN Reason: Shortness Of Breath Azithromycin [Zithromax TAB] 250 mg PO QDAY #6 tablet Prednisone [predniSONE 5 mg (6-Day Pack, 21 Tabs)] 5 mg PO .TAPER #1 tab.ds.pk
== END 2016-08-21 16:32 | disposition left against medical advice (07) | DRG 189 ==
LOC: ED 13:37 → 3A 08-17 00:38
PROVIDERS: ADMIT Internal Medicine; ATTEND Internal Medicine
PROC: 4A033R1 Measurement of Arterial Saturation, Peripheral, Percutaneous Approach (ICD-10-PCS; principal; 2016-08-18)
DX: J96.02 Acute respiratory failure with hypercapnia (principal); J44.1 Chronic obstructive pulmonary disease with (acute) exacerbation; J44.0 Chronic obstructive pulmonary disease with (acute) lower respiratory infection; K21.9 Gastro-esophageal reflux disease without esophagitis; J20.9 Acute bronchitis, unspecified; F31.9 Bipolar disorder, unspecified; F03.90 Unspecified dementia, unspecified severity, without behavioral disturbance, psychotic disturbance, mood disturbance, and anxiety; I10 Essential (primary) hypertension; I25.10 Atherosclerotic heart disease of native coronary artery without angina pectoris; E11.9 Type 2 diabetes mellitus without complications; G35 Multiple sclerosis; F17.200 Nicotine dependence, unspecified, uncomplicated; G25.81 Restless legs syndrome; R32 Unspecified urinary incontinence; E66.9 Obesity, unspecified; Z88.5 Allergy status to narcotic agent; Z91.041 Radiographic dye allergy status; Z82.49 Family history of ischemic heart disease and other diseases of the circulatory system; I25.2 Old myocardial infarction; Z95.5 Presence of coronary angioplasty implant and graft; Z79.4 Long term (current) use of insulin; Z68.34 Body mass index [BMI] 34.0-34.9, adult
CPT/HCPCS: 36415; 71010; 80048; 80053; 81001; 82010; 82803; 82805; 82962; 83036; 83735; 83880; 84484; 85007; 85025; 87040; 93005; 93010; 94640; 94760; 96361; 96372; 96374; 96375; 99406; J1650; J1815; J1956; J2920; J2930; J7030

== ENCOUNTER 2017-10-02 19:31 | Emergency (ER) | payer MEDICARE ==
[2017-10-02] MEDS ORDERED: TORADOL IM ONE (21:03)
--- NOTE | 2017-10-02 21:10 | Emergency Department Report ---
HPI - General Chief Complaint: Urogenital-Female Time Seen by Provider: 10/02/17 20:31 - HPI HPI: The patient is a 61-year-old female who presents for evaluation of abdominal pain and difficulty urinating. The patient reports 3 days of lower abdominal pain, pressure-like in quality, moderate to severe for the past one day, relieved with urination. She also reports associated dysuria for the past 3 days , and decreased urinary output since this morning. She states that her last for any was this morning, approximately 12 hours prior to my evaluation. She submits that she was diagnosed with urinary tract infection within the past couple of days and started on an antibiotic. The patient denies fever, chills, night sweats, diarrhea, blood in the stool, dark tarry stool, hematuria, genital discharge, inability to pass flatus. ED Past Medical Hx - Past Medical History Hx Heart Attack/AMI: Yes (stents x4) Hx Diabetes: Yes Hx GERD: Yes Hx Psychiatric Treatment: Yes (bipolar) Hx COPD: Yes Additional medical history: multiple sclerosis - Surgical History Hx Coronary Stent: Yes (x4) - Social History Smoking Status: Current Every Day Smoker Substance Use Type: None - Medications Home Medications: Home Medications Medication Instructions Recorded Confirmed Last Taken Type ALBUTEROL Inhaler [ProAir HFA 2 puff IH QID PRN #2 inhalation 08/16/16 Unknown Rx Inhaler] Azithromycin [Zithromax TAB] 250 mg PO QDAY #6 tablet 08/16/16 Unknown Rx Baclofen [Lioresal] 10 mg PO TID 08/16/16 08/16/16 Unknown History Donepezil [Aricept] 10 mg PO QDAY 08/16/16 08/16/16 Unknown History Duloxetine HCl [Cymbalta] 60 mg PO QDAY 08/16/16 08/16/16 Unknown History ISOSORBIDE MONOnitrate [Imdur ER] 60 mg PO QAM 08/16/16 08/16/16 Unknown History Losartan [Cozaar] 100 mg PO QDAY 08/16/16 08/16/16 Unknown History Lurasidone HCl [Latuda] 20 mg PO QHS 08/16/16 08/16/16 Unknown History Meloxicam [Mobic] 7.5 mg PO QDAY 08/16/16 08/16/16 Unknown History Memantine HCl [Namenda Xr] 28 mg PO QDAY 08/16/16 08/16/16 Unknown History Mirtazapine [Remeron] 30 mg PO QDAY 08/16/16 08/16/16 Unknown History Omeprazole Magnesium [PriLOSEC Otc] 20 mg PO QDAY 08/16/16 08/16/16 Unknown History Oxybutynin Chloride [Ditropan Xl] 10 mg PO QDAY 08/16/16 08/16/16 Unknown History Ranitidine HCl [Zantac 150 MG TAB] 150 mg PO BID 08/16/16 08/16/16 Unknown History Prednisone [predniSONE 5 mg (6-Day 5 mg PO .TAPER #1 tab.ds.pk 08/19/16 Unknown Rx Pack, 21 Tabs)] ED Review of Systems ROS: Stated complaint: CAN'T PEE Other details as noted in HPI Constitutional: denies: fever ENT: denies: throat or neck pain Respiratory: denies: cough, shortness of breath Cardiovascular: denies: chest pain Endocrine: denies unexplained weight loss or gain Gastrointestinal: reports abdominal pain, denies:nausea Genitourinary: reports: dysuria Musculoskeletal: denies: leg swelling Skin: denies: rash Neurological: denies: headache Hematological/Lymphatic: denies: easy bleeding or easy bruising Psych: denies sadness or hopelessness Physical Exam - Physical Exam Vital Signs: Vital Signs 10/02/17 19:59 Temperature 97.8 F Pulse Rate 85 Respiratory 18 Rate Blood Pressure 114/57 O2 Sat by Pulse 95 Oximetry Physical Exam: General: well-nourished, well-developed, no acute distress Head: Normocephalic, atraumatic Eyes: normal sclera ENT: Mucous membranes are pink and moist Neck: trachea midline, neck supple, No neck stiffness, no cervical adenopathy Respiratory: Breath sounds equal bilaterally, no wheezing, rales, or rhonchi Cardio: S1 and S2 present, no murmurs, rubs, gallops, capillary refill is brisk Abdomen: Normoactive bowel sounds, soft abdomen, suprapubic tenderness to palpation and suprapubic distention/fullness is present, no rigidity, no guarding or rebound tenderness Chest WALL/Back: No tenderness to palpation of the chest wall, no CVA tenderness with percussion Musc: No pitting edema Skin: No rash Neuro: no facial drooping, normal speech Psych: Normal affect ED Course Vital Signs 10/02/17 19:59 Temperature 97.8 F Pulse Rate 85 Respiratory 18 Rate Blood Pressure 114/57 O2 Sat by Pulse 95 Oximetry ED Medical Decision Making - Lab Data Result diagrams: 10/02/17 21:16 10/02/17 21:16 - Medical Decision Making The patient was seen and examined by myself. The patient is placed on a conveyor monitor and continuous pulse ox. On initial evaluation, the patient was found to be in no distress. Evaluation orders are placed. The patient is given pain medicine. A Fraser catheter is placed and urine output is able to be obtained. Lab results were reassuring including normal creatinine level and normal urinalysis. The patient was reevaluated and reported that her pain was resolved. The patient is stable for discharge with outpatient follow-up. The patient is given follow-up and return instructions. The patient expressed understanding and agreed with the plan. The patient is discharged in stable condition. Critical care attestation.: If time is entered above; I have spent that time in minutes in the direct care of this critically ill patient, excluding procedure time. ED Disposition Clinical Impression: Acute urinary retention, Suprapubic abdominal pain, Dehydration, mild Disposition: DC-01 TO HOME OR SELFCARE Is pt being admited?: No Does the pt Need Aspirin: No Condition: Stable Instructions: Acute Urinary Retention in Women (ED), Acute Abdominal Pain (ED) Referrals: JOSE BRODY MD [Staff Physician] - 3-5 Days Time of Disposition: 22:58
[2017-10-02 21:36] LABS: Basophils # (Auto) 0.1 K/mm3 (0.0-0.1); Eosinophils # (Auto) 0.1 K/mm3 (0.0-0.4); Eosinophils % (Auto) 0.7 % (0.0-4.3); Hematocrit 42.4 % (30.3-42.9); Hemoglobin 13.9 gm/dl (10.1-14.3); Lymphocytes # (Auto) 2.6 K/mm3 (1.2-5.4); Lymphocytes % (Auto) 34.1 % (13.4-35.0); Mean Corpuscular HGB Conc 33 % (30-34); Mean Corpuscular Hemoglobin 30 pg (28-32); Mean Corpuscular Volume 90 fl (79-97); Monocytes # (Auto) 0.9 K/mm3 (0.0-0.8); Platelet Count 281 K/mm3 (140-440); Red Blood Count 4.72 M/mm3 (3.65-5.03); Red Cell Distribution Width 15.1 % (13.2-15.2)
[2017-10-02 21:58] LABS: BUN/Creatinine Ratio 42; Blood Urea Nitrogen 21 mg/dL (7-17); Calcium 9.4 mg/dL (8.4-10.2); Hemolysis Index 48
[2017-10-02 22:00] LABS: Bilirubin,Urine SM (Negative); Blood,Urine NEG (Negative); Color,Urine Amber (Yellow); Mucus,Urine 3+ /HPF; RBC,Urine < 1.0 /HPF (0.0-6.0)
[2017-10-02 22:04] VITALS: BP 144/72
[2017-10-02 22:11] LABS: Ictotest,Urine Negative (Negative)
== END 2017-10-02 23:35 | disposition home or self-care (01) ==
LOC: ED 19:31
DX: E86.0 Dehydration (principal); R33.9 Retention of urine, unspecified; E11.9 Type 2 diabetes mellitus without complications; K21.9 Gastro-esophageal reflux disease without esophagitis; F31.9 Bipolar disorder, unspecified; J44.9 Chronic obstructive pulmonary disease, unspecified; F17.200 Nicotine dependence, unspecified, uncomplicated; Z95.1 Presence of aortocoronary bypass graft
CPT/HCPCS: 36415; 51702; 80048; 81001; 85025; 96372; 99283; J1885

== ENCOUNTER 2017-10-08 20:44 | Emergency (ER) | payer MEDICARE ==
[2017-10-08 20:57] VITALS: BP 116/73
[2017-10-09] MEDS ORDERED: MOTRIN PO ONE (06:32)
--- NOTE | 2017-10-09 06:35 | Emergency Department Report ---
HPI - General Chief Complaint: Urogenital-Female Time Seen by Provider: 10/09/17 06:19 - HPI HPI: Room 7 The patient is a 61-year-old female presenting with a chief complaint of leaking Fraser catheter. The patient states yesterday she noticed her indwelling Fraser catheter began leaking but she cannot tell from where. The patient states she is having pain at the insertion site and wishes to have the catheter removed. Denies fevers nausea or vomiting. Patient denies any other forms of pain. The patient states she has an appointment to see a urologist tomorrow Location: [See above] Duration: Constant since yesterday Quality:. Irritating Severity: Moderate Modifying factors: [see above] Context: [see above] Mode of transportation: Unknown ED Past Medical Hx - Past Medical History Hx Heart Attack/AMI: Yes (stents x4) Hx Diabetes: Yes Hx GERD: Yes Hx Psychiatric Treatment: Yes (bipolar) Hx COPD: Yes Additional medical history: multiple sclerosis - Surgical History Hx Coronary Stent: Yes (x4) - Family History Family history: no significant - Social History Smoking Status: Current Every Day Smoker (1/4 pack per day) Substance Use Type: None (denies illicit drug use) - Medications Home Medications: Home Medications Medication Instructions Recorded Confirmed Last Taken Type ALBUTEROL Inhaler [ProAir HFA 2 puff IH QID PRN #2 inhalation 08/16/16 Unknown Rx Inhaler] Azithromycin [Zithromax TAB] 250 mg PO QDAY #6 tablet 08/16/16 Unknown Rx Baclofen [Lioresal] 10 mg PO TID 08/16/16 08/16/16 Unknown History Donepezil [Aricept] 10 mg PO QDAY 08/16/16 08/16/16 Unknown History Duloxetine HCl [Cymbalta] 60 mg PO QDAY 08/16/16 08/16/16 Unknown History ISOSORBIDE MONOnitrate [Imdur ER] 60 mg PO QAM 08/16/16 08/16/16 Unknown History Losartan [Cozaar] 100 mg PO QDAY 08/16/16 08/16/16 Unknown History Lurasidone HCl [Latuda] 20 mg PO QHS 08/16/16 08/16/16 Unknown History Meloxicam [Mobic] 7.5 mg PO QDAY 08/16/16 08/16/16 Unknown History Memantine HCl [Namenda Xr] 28 mg PO QDAY 08/16/16 08/16/16 Unknown History Mirtazapine [Remeron] 30 mg PO QDAY 08/16/16 08/16/16 Unknown History Omeprazole Magnesium [PriLOSEC Otc] 20 mg PO QDAY 08/16/16 08/16/16 Unknown History Oxybutynin Chloride [Ditropan Xl] 10 mg PO QDAY 08/16/16 08/16/16 Unknown History Ranitidine HCl [Zantac 150 MG TAB] 150 mg PO BID 08/16/16 08/16/16 Unknown History Prednisone [predniSONE 5 mg (6-Day 5 mg PO .TAPER #1 tab.ds.pk 08/19/16 Unknown Rx Pack, 21 Tabs)] ED Review of Systems ROS: Stated complaint: LEAKING CATHETER Other details as noted in HPI Constitutional: denies: fever Eyes: denies: eye pain ENT: denies: throat pain Cardiovascular: denies: chest pain Gastrointestinal: denies: nausea, vomiting Genitourinary: dysuria Musculoskeletal: denies: back pain Neurological: denies: headache Physical Exam - Physical Exam Vital Signs: Vital Signs 10/08/17 20:54 Temperature 98.1 F Pulse Rate 107 H Respiratory 18 Rate Blood Pressure 116/73 O2 Sat by Pulse 94 Oximetry Physical Exam: GENERAL: The patient is well-developed well-nourished female lying on stretcher not appearing to be in acute distress. [] HEENT: Normocephalic. Atraumatic. Extraocular motions are intact. Patient has moist mucous membranes. NECK: Supple. Trachea midline CHEST/LUNGS: Clear to auscultation. There is no respiratory distress noted. HEART/CARDIOVASCULAR: Regular. There is no tachycardia. There is no gallop rub or murmur. ABDOMEN: Abdomen is soft, no rebound or guarding. There is suprapubic discomfort. Patient has normal bowel sounds. There is no abdominal distention. SKIN: There is no rash. There is no edema. There is no diaphoresis. NEURO: The patient is awake, alert, and oriented. The patient is cooperative. The patient has normal speech MUSCULOSKELETAL: There is no evidence of acute injury. ED Course Vital Signs 10/08/17 20:54 Temperature 98.1 F Pulse Rate 107 H Respiratory 18 Rate Blood Pressure 116/73 O2 Sat by Pulse 94 Oximetry ED Medical Decision Making - Lab Data Laboratory Tests 10/09/17 05:25 POC Glucose 137 H - Medical Decision Making I discussed with the patient at length my recommendation that her Fraser catheter exchanged for a new catheter given her history of urinary retention as indication for initial placement. Patient verbalized understanding and states she wishes to have the catheter removed. I explained to her that she runs the risk of being in the same condition that prompted her to come to the emergency department 10/02/2017 if she is still retaining urine. Patient verbalized understanding but still states she wishes to have the catheter removed. The patient states she has an appointment to see a urologist tomorrow - Differential Diagnosis Fraser catheter irritation Critical care attestation.: If time is entered above; I have spent that time in minutes in the direct care of this critically ill patient, excluding procedure time. ED Disposition Clinical Impression: Encounter for Fraser catheter removal Disposition: DC-01 TO HOME OR SELFCARE Is pt being admited?: No Does the pt Need Aspirin: No Condition: Stable Instructions: Acute Urinary Retention in Women (ED) Additional Instructions: Return to the emergency department immediately should you develop worsening symptoms, fever, inability to tolerate food or liquid or any other concerns. Referrals: JOSE BRODY MD [Staff Physician] - 10/10/17 Time of Disposition: 06:36
== END 2017-10-09 06:55 | disposition home or self-care (01) ==
LOC: ED 20:44
DX: Z46.6 Encounter for fitting and adjustment of urinary device (principal); E11.9 Type 2 diabetes mellitus without complications; K21.9 Gastro-esophageal reflux disease without esophagitis; F31.9 Bipolar disorder, unspecified; I25.2 Old myocardial infarction; F17.210 Nicotine dependence, cigarettes, uncomplicated
CPT/HCPCS: 51702; 82962

== ENCOUNTER 2017-10-28 19:30 | Emergency (ER) | payer MEDICARE ==
[2017-10-28 19:36] VITALS: BP 152/60
[2017-10-28] MEDS ORDERED: ASPIRIN PO ONE (19:53)
[2017-10-28 20:16] LABS: Basophils # (Auto) 0.1 K/mm3 (0.0-0.1); Basophils % (Auto) 1.3 % (0.0-1.8); Eosinophils # (Auto) 0.1 K/mm3 (0.0-0.4); Eosinophils % (Auto) 0.8 % (0.0-4.3); Hematocrit 42.6 % (30.3-42.9); Hemoglobin 14.5 gm/dl (10.1-14.3); Lymphocytes # (Auto) 2.8 K/mm3 (1.2-5.4); Lymphocytes % (Auto) 34.1 % (13.4-35.0); Mean Corpuscular HGB Conc 34 % (30-34); Mean Corpuscular Hemoglobin 31 pg (28-32); Mean Corpuscular Volume 90 fl (79-97); Monocytes # (Auto) 0.8 K/mm3 (0.0-0.8); Monocytes % (Auto) 9.5 % (0.0-7.3); Platelet Count 299 K/mm3 (140-440); Red Blood Count 4.74 M/mm3 (3.65-5.03); Red Cell Distribution Width 14.9 % (13.2-15.2)
[2017-10-28 20:29] LABS: BUN/Creatinine Ratio 25; Blood Urea Nitrogen 10 mg/dL (7-17); Calcium 9.5 mg/dL (8.4-10.2); Hemolysis Index 11
== END 2017-10-28 19:55 | disposition left against medical advice (07) ==
LOC: ED 19:30
DX: R07.9 Chest pain, unspecified (principal); Z53.21 Procedure and treatment not carried out due to patient leaving prior to being seen by health care provider
CPT/HCPCS: 36415; 80048; 84484; 85025; 93005; 93010